=== PATIENT | male | born 1945 | race Caucasian/White ===

== ENCOUNTER 2023-06-26 13:28 | Outpatient (CLI) | payer MEDICARE, SELFPAY ==
--- NOTE | ~2023-06-26 | CT_ITS ---
EXAMINATION: CT abdomen pelvis wo con DATE: 06/26/2023 13:42 INDICATION: Benign prostatic hypertrophy. Urinary obstruction. TECHNIQUE: Computed tomography (CT) of the abdomen and pelvis was performed without intravenous contr ast. Automated exposure control and iterative reconstruction technique were employed. The dose-length product was 1092.62 mGy-cm. COMPARISON: None. FINDINGS: The visualized portions of the lung bases demonstrate mild atelectasis. There is mild bronc hiectasis bilaterally. No pleural effusion. The heart size is normal. There are coronary artery calci fications. No pericardial effusion. The liver, spleen, gallbladder, and adrenal glands are normal. Ca lcifications in the pancreas are consistent with chronic pancreatitis. The kidneys are normal. The pr ostate is moderately enlarged. There are bilateral inguinal hernias containing fat. There is divertic ulosis of the colon without evidence of diverticulitis. There are no dilated loops of bowel. The appe ndix is normal. There are no pathologically enlarged lymph nodes. There is no free intraperitoneal fl uid. There is moderate thoracic spondylosis and severe lumbar spondylosis. There is mild chronic heig ht loss of multiple vertebral bodies. IMPRESSION: 1. Moderately enlarged prostate. 2. Bilateral inguinal hernias containing fat. Reviewed, dictated and finalized at location E.
== END 2023-06-26 13:29 ==
LOC: MICIMG 13:29
PROVIDERS: PCP Urology; Visit Provider Urology
DX: N40.1 Benign prostatic hyperplasia with lower urinary tract symptoms (principal); K40.20 Bilateral inguinal hernia, without obstruction or gangrene, not specified as recurrent
CPT/HCPCS: 74176

== ENCOUNTER 2025-01-24 12:57 | Outpatient (CLI) | payer MEDICARE, SELFPAY ==
--- NOTE | ~2025-01-24 | MMUS_ITS ---
EXAMINATION: MM diagnostic carter BI w fredy, US breast LT limited INDICATION: 79-year old MALE; presents for evaluation of palpable lump in the left breast, ongoing for 4 months. COMPARISON: None TECHNIQUE: Digital breast tomosynthesis CC and MLO views of the BILATERAL breast were obtained with computer-aided detection to assist in interpretation of the study. Radiopaque skin marker was placed over the palpable area in the left breast. FINDINGS: There are scattered areas of fibroglandular density.There is moderate volume of fibroglandular tissue in LEFT breast compatible with gynecomastia. This finding correlates to the radiopaque skin marker. The right breast is entirely fatty. LEFT BREAST ULTRASOUND FINDINGS: Targeted evaluation of the area of palpable lump was completed. Normal appearing fibroglandular tissue is identified in subareolar location. There are no suspicious cystic or solid mass seen in either breast. A 0.2 cm superficial cysts is identified at 3:00, 3 cm from the nipple. IMPRESSION: FINDINGS COMPATIBLE WITH GYNECOMASTIA CORRELATES TO THE AREA OF PALPABLE LUMP IN THE LEFT BREAST . FURTHER EVALUATION OF PATIENT'S PALPABLE LUMP SHOULD BE BASED ON CLINICAL IMPRESSION. FOLLOW-UP CLINICALLY WARRANTED. RECOMMENDATION: CLINICAL MANAGEMENT OF PALPABLE LUMP BI-RADS 2, BENIGN Reviewed, dictated and finalized at location B. COUNSELOR IMPRESSION: FINDINGS COMPATIBLE WITH GYNECOMASTIA CORRELATES TO THE AREA OF PALPABLE LUMP I N THE LEFT BREAST . FURTHER EVALUATION OF PATIENT'S PALPABLE LUMP SHOULD BE BAS ED ON CLINICAL IMPRESSION. FOLLOW-UP CLINICALLY WARRANTED. RECOMMENDATION: CLINICAL MANAGEMENT OF PALPABLE LUMP BI-RADS 2, BENIGN
--- OUTSIDE RECORDS SUMMARY | 2025-01-24 13:05 | XMS_ITS | Clinical Summary ---
Author Organization [facility] [employer] Address [address] [place] [address] Care Team Providers Care Vocational [employer] Instructor Name Role Phone Jairo Natarajan MD Primary Care Provider [phone] Source Comments [facility] [employer],non-owned Affiliates and Associated Physician Practices is amultiple site organization consisting of ambulatory clinics and hospital sitesin [place], [place], [place] and [place]. This disclosure is being madepursuant to the Care Everywhere program and may not contain all information available regarding this patient. Last updated 17.[facility] [employer] Allergies Active Allergy Reactions Criticality Noted Date Comments Atorvastatin 03/09/2017 Penicillins 03/09/2017 Sulphamethoxydiazine 03/09/2017 Medications * Be aware that medications may not be up to date on this document. Alwaysverify current medications with the patient. simvastatin (ZOCOR) 40 MG tablet Take 40 mg by mouth at bedtime Active TAMSULOSIN HCL PO Active Montelukast Sodium (SINGULAIR PO) Activ e FENOFIBRATE PO Activ e Eluxadoline (VIBERZI PO) Active SERTRALINE HCL PO Active DICYCLOMINE HCL PO Active OMEPRAZOLE PO Active Nutritional Supplements (DHEA PO) Active ALPHA-LIPOIC ACID PO Active DL-Phenylalanine POWD Active CHROMIUM PICOLINATE PO Active ACETYLCYSTEINE PO Active MILK THISTLE PO Acti ve [place], Zingiber officinalis, (GILES PO) Active [place]-Glucos amine-Vit D (GLUCOSAMINE COMPLEX PO) Active CALCIUM-MAGNESIU M-ZINC PO Active Garlic 1000 MG Activ e [place], Serenoa repens, ([place] PO) Active POTASSIUM PO Active [place]-3 Fatty Acids (FISH OIL PO) Active VITAMIN E PO Active FLAXSEED, LINSEED, PO Active SELENIUM PO Active Cholecalciferol (VITAMIN D PO) Activ e Green Tea, Camillia sinensis, (GREEN TEA PO) Active FOLIC ACID PO Active LYCOPENE PO Active Vitamins A & D (VITAMIN A & D PO) Active Pyridoxine HCl (VITAMIN B6 PO) Acti ve S-Adenosylmethio nine (FLAVIO-E PO) Acti ve 5-Hydroxytryptop valdez (5-HTP PO) Activ e albuterol HFA (PROVENTIL;ONUR RAFAEL;PROAIR) 108 (90 BASE) MCG/ACT inhalerIndicatio ns:Acute bronchitis, unspecified organism Inhale 2 puffs by mouth every 4 hours as needed for Shortness of Breath, Wheezing or Cough 1 Inhaler 8 Active benzonatate (TESSALON) 200 MG capsuleIndicatio ns:Cough Take 1 capsule by mouth 3 times daily as needed for Cough Reasons: Cough 30 capsule 8 Active Social History Tobacco Use Types Packs/Day Years Used Date Smoking Tobacco: Never Smokeless Tobacco: Never Sex and Gender Information Value Date Recorded Sex Assigned at Not on file Legal Sex Male 3:25 PM CDT Gender Identity Not on file Sexual Orientation Not on file Last Filed Vital Signs Vital Sign Reading Time Taken Comments Blood Pressure 138/72 03/09/2017 11:04 AM [employer] Pulse 90 03/09/2017 11:04 AM [employer] Temperature 36.8 C (98.3 F) 03/09/2017 11:04 AM [employer] Respiratory Rate 16 03/09/2017 11:04 AM [employer] Oxygen Saturation 96% 03/09/2017 11:04 AM [employer] Inhaled Oxygen Concentration - - Weight 120.2 kg (265 lb) 03/09/2017 11:04 AM [employer] Height 167.6 cm (5' 6) 03/09/2017 11:04 AM [employer] Body Mass Index 42.77 03/09/2017 11:04 AM [employer] Plan of Treatment Health Maintenance Due Date Last Done Comments HEPATITIS C SCREENING 10/08/1965 DTAP/TDAP/TD VACCINES (1 - Tdap) 10/12/1966 PNEUMOCOCCAL VACCINE 50+ (1 of 1 - PCV) 10/12/1997 ZOSTER VACCINE (1 of 2) 10/12/1997 SCREENING FOR DIABETES 03/09/2017 Respiratory Syncytial Virus (RSV) Vaccine Pt: or over 60 yrs (1 - 1-dose 75+ series) 10/12/2022 DEPRESSION SCREENING 03/06/2024 COVID-19 VACCINE (1 - 2024-2 6 season) 2024 INFLUENZA VACCINE (#1) 2024 HEPATITIS B VACCINE Aged Out No longe r eligible based on patient's age to complete this topic HIB VACCINE Aged Out No longer eligi ble based on patient's age to complete this topic HPV VACCINE Aged Out No longer eligi ble based on patient's age to complete this topic MENINGOCOCCAL (Group B) VACC INE SHARED DECISION-MAKING Aged Out No longer eligibl e based on patient's age to complete this topic MENINGOCOCCAL GROUPS A/C/Y/W VACCINE Aged Out No longer eligible b ased on patient's age to complete this topic Insurance [facility] MANAGED MEDICARE ADV Care Teams 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
== END 2025-01-24 12:58 | disposition home or self-care (01) ==
PROVIDERS: PCP Internal Medicine; Visit Provider Internal Medicine
DX: N63.42 Unspecified lump in left breast, subareolar (principal); N60.12 Diffuse cystic mastopathy of left breast
CPT/HCPCS: 36415; 76642; 77062; 77066; 80053; 80061; 82043; 83036; G0279

== ENCOUNTER 2025-01-24 15:02 | Outpatient (CLI) | payer MEDICARE, SELFPAY ==
--- OUTSIDE RECORDS SUMMARY | 2025-01-24 15:06 | XMS_ITS | Continuity of Care Document ---
Author Organization [facility] [employer] [facility] General Surgery Address [address] [place] [address] Care Team Providers Care Account Manager Employee Benefits Name Role Phone KALEY NATARAJAN Primary Care Provider [phone] Assessment No assessment recorded. Plan of Treatment Reminders Order Date Submit Date Provider Last Modified By Organization Details Last Modified Time Details Appointments [facility] Patient 15 2025 03:45P M Seth Neal DPM Not available Not available Not available [facility] Patient 15 2025 02:15P M Vielka De Los Santos MD Not available Not available Not available Lab None recorded . Referral None recorded . Procedures None recorded . Surgeries None recorded . Imaging None recorded . Medication Orders famotidi ne 40 mg tablet 2024 025 [facility] [address] [place], [address], 11/20/2024 15:53:56 pantopra zole 40 mg tablet,d elayed release 2024 025 [facility] [address] [place], [address], 11/20/2024 15:53:57 Patient TargetsNo targets recorded. Patient Instructions Encounter Date Encounter Id Patient Instructions Last Modified By Organization Details Last Modified Time 11/20/2024 [id number] REFLUX DIET [id number] Not available 0 11/20/2024 15:52:45 PT WITH GERD , DOING WELL WITH PANTOPRAZOLE 40 MG / FAMOTIDINE 40 MG . CONT SAME. F/U IN 6 MTHS . [email or web address] Not available 11/20/2024 15:53:28 Reason for Referral None Reported. Problems Name Problem SNOMED Code Status Onset Date Resolution Date Notes Provider Name and Address Organization Details Recorded Time Insomnia 277928349 Active Not Available [facility] 3 13:53:19 Osteoarthr itis 938487385 Active Not Available [facility] 3 13:53:20 Dysphagia 40433344 Active Not Available [facility] 3 13:53:20 Periodic limb movement disorder 740764112 Active Not Available [facility] 3 13:53:20 Allergic rhinitis 67075276 Active Not Available [facility] 3 13:53:21 Fatigue 89913654 Active Not Available [facility] 3 13:53:21 Vitamin deficiency 21277387 Active Not Available [facility] 3 13:53:21 Hyperchole sterolemia 72065561 Active 2017 Not Available [facility] 3 13:53:19 Prostate specific antigen outside reference range 320699598 Active 2017 Not Available [facility] 3 13:53:19 Irritable bowel syndrome with diarrhea 375263889 Active 2017 Not Available [facility] 3 13:53:19 Osteoarthr itis of knee 489260891 Active 2017 Not Available [facility] 3 13:53:19 Depressive disorder 35507397 Active 2017 Not Available [facility] 3 13:53:20 Obstructiv e sleep apnea syndrome 72385535 Active 2017 Not Available [facility] 3 13:53:21 Body mass index 40+ - severely obese 793590693 Active 2018 Not Available [facility] 3 13:53:20 Gastroesop hageal reflux disease 649390015 Active 2019 Not Available [facility] 3 13:53:19 Irregular heart beat 187129697 Active 2020 Not Available [facility] 3 13:53:20 Porokerato sis 216479286 Active 2020 Not Available [facility] 3 13:53:20 Tinea cruris 015304754 Active 2021 Not Available [facility] 3 13:53:20 Obesity 048148673 Active 2021 Not Available [facility] 3 13:53:20 Benign prostatic hyperplasi a 634975414 Active 2021 Not Available [facility] 3 13:53:20 Gastroesop hageal reflux disease without esophagiti s 008010014 Active 2021 Not Available [facility] 3 13:53:19 Morbid obesity 279009248 Active 2021 Not Available [facility] 3 13:53:19 Obese class III 633959555 Active 2022 Kaley Natarajan MD [address], [place], [address] , [employer] [facility] 3 15:47:45 Onychomyco sis of toenails 769621923 Active 2022 Seth Neal DPM [address], [address], [place], [address] , [facility] [facility] 3 16:03:20 Dystrophia unguium 77367399 Active 2022 Seth Neal DPM [address], [address], [place], [address] , [employer] [facility] 5 17:16:54 Tinea corporis 10829082 Active 2022 Kaley Natarajan MD [address], [address], [place], [address] , [employer] [facility] 3 16:02:16 Acute sinusitis 15065310 Active 2023 Kaley Natarajan MD [address], [address], [place], [address] , [facility] 4 16:03:22 Neuropathy 918443620 Active 2023 Kaley Natarajan MD [address], [address], [place], [address] , [place] [facility] 4 16:52:34 Diabetes mellitus 40089060 Active 2023 Seth Neal DPM [address], [address], [place], [address] , [place] [facility] 5 09:01:03 Unable to cut own toenails 058151188 Active 2023 Seth Neal DPM [address], [place], [address] , [place] [facility] 4 17:32:11 Disorder of prostate 10956044 Active 2023 Kaley Natarajan MD [address], [place], [address] , [place] [facility] 4 17:08:48 Diabetic on oral treatment 859828576 Active 2024 Seth Neal DPM [address], [place], [address] , [place] [facility] 5 17:23:32 Type 2 diabetes mellitus 41348097 Active 2024 Kaley Natarajan MD [address], [place], [address] , [place] [facility] 5 17:20:07 Lump in upper outer quadrant of left breast 5774391457804 03 Active 2024 Kaley Natarajan MD [address], [place], [address] , [place] [facility] 5 17:23:38 Lump of subareolar area of left breast 6716483447292 9107 Active 2024 Roxana keenan, [place] [facility] 5 14:54:19 Notes:Some problems listed i n Document: #[id number] could not be added to this patient's chart. Please review this document and add these problems to the patient's chart manually as needed. Problem Notes None recorded. Procedures Surgical History Date Name Laterality Status Provider Name and Address Organization Details Recorded Time 11/22/19 25 Nail Debridement completed Seth Neal DPM [address], [address], [place], [address], [employer] 11/25/2024 09:02:18 08/23/19 25 Nail Debridement completed NATHAN Ceron, [address], [place], [address], [employer] 08/22/2024 17:16:44 05/22/19 25 Nail Debridement completed NATHAN Ceron, [address], [place], [address], [employer] 05/23/2024 09:47:05 02/20/20 24 Nail Debridement completed NATHAN Ceron, [address], [place], [address], [employer] 02/21/2024 13:59:43 11/21/19 24 Nail Debridement completed NATHAN Ceron, [address], [place], [address], [employer] 11/21/2023 17:30:19 09/20/19 24 Medicare Wellness CPT Code, subsequent completed Mirian Demarco RN [employer] [facility] [employer] 09/20/2023 16:44:50 08/15/19 24 Nail Debridement completed NATHAN Ceron, [address], [place], [address], [employer] 08/15/2023 17:48:45 02/15/20 23 Nail Debridement completed NATHAN Ceron, [address], [place], [address], [employer] [address] [facility] [employer] 02/15/2023 11:14:26 02/03/20 23 Blank Procedure Note completed NATHAN Ceron, [address], [place], [address], [employer] 02/02/2023 16:19:41 10/26/19 23 Nail Debridement completed Seth Neal DPM [address], [place], [address], [facility] 10/25/2022 16:05:06 10/14/19 23 Cystoscopy (male) completed Flaco Ramesh MD [address], [address], [place], [address], [facility] 2022 12:55:36 05/12/19 Medicare Wellness CPT Code, subsequent completed Mirian Demarco RN [facility] [employer] [facility] 05/11/2022 16:24:07 EGD completed Not Available [facility] 03/2022 13:52:33 colonoscopy completed Not Available [facility] 05/04/2022 13:52:33 tonsillectomy completed Not Available [facility] 05/04/2022 13:52:33 biopsy of prostate completed Not Available [facility] 05/04/2022 13:52:33 manipulation of displaced nasal septum completed Not Available [facility] 05/04/2022 13:52:33 Adenoid Surgery completed Not Available [facility] 05/04/2022 13:52:33 Colonoscopy completed Not Available [facility] 05/04/2022 13:52:33 Endoscopy completed Not Available [place] [address] 05/04/2022 13:52:33 Imaging Results None recorded. Procedure Notes None recorded. Medical Equipment None Reported. Allergies Allergen ID Allergen Name Allergen Category Reaction Reaction Severity Criticality Documentation Date Start Date Code Code System Note Provider Name and Address Organization Details Recorded Time 97696 Substance with sulfonami de structure and antibacte rial mechanism of action (substanc e) medicatio n rash Not available Not available 05/04/2022 12636 8003 SNOMED Not Available [facility] 13:54:59 98261 simvastat in medicatio n Not available Not available Not available 05/04/2022 96129 RxNorm Not Available [facility] 13:54:59 31041 Product containin g penicilli n (product) medicatio n rash Not available Not available 05/04/2022 42415 8001 SNOMED Not Available [facility] 3 13:54:59 58313 phenazopy ridine hydrochlo ride medicatio n Not available Not available Not available 05/04/202242648 7 RxNorm with pumpk in Not Available [facility] 3 13:54:59 57321 atorvasta tin medicatio n rash Not available Not available 05/04/2022 25680 RxNorm Not Available [facility] 3 13:54:59 42834 ciproflox acin medicatio n Not available Not available Not available 10/14/2022 2551 RxNorm TY Weir, [place] [facility] 3 11:13:30 97673 atorvasta tin calcium medicatio n Not available Not available Not available 01/24/20252017 18119 RxNorm Not Available [employer] - prod 5 15:16:11 Medications Name Sig Start Date Stop Date Status Note LastModified by Organization Details LastModified Time status covid-19/fl u a-b antigen tst TEST DIRECTED TODAY 01/28 completed Not Available Not Available Not Available pioglitazon e 15 mg tablet one tablet daily 03/28 completed Not Available Not Available Not Available fluconazole 100 mg tablet 09/15 completed Not Available Not Available Not Available atorvastati n 40 mg tablet 11/23 completed Not Available Not Available Not Available metformin 500 mg tablet QID 11/22 completed Not Available Not Available Not Available oxybutynin chloride ER 15 mg tablet,exte nded release 24 hr Take 1 tablet every day by oral route. 2019 active Not Available Not Available Not Avai lable clindamycin HCl 300 mg capsule 09/26 completed Not Available Not Available Not Available ammonium lactate 12 % lotion APPLY LOTION TOPICALLY TO AFFECTED AREA TWICE DAILY NEEDED 05/19 completed Not Available Not Available Not Available trazodone 50 mg tablet TAKE 1 TABLET BY MOUTH ONCE DAILY 05/20 completed Not Available Not Available Not Available oxybutynin chloride ER 10 mg tablet,exte nded release 24 hr TAKE 1 TABLET BY MOUTH ONCE DAILY 06/12 completed Not Available Not Available Not Available azithromyci n 250 mg tablet TAKE 2 TABLETS BY MOUTH ON DAY 1, AND THEN TAKE 1 TABLET BY MOUTH ONCE A DAY ON DAY 2 THROUGH DAY 5 05/15 completed Not Available Not Available Not Available pravastatin 40 mg tablet Take 1 tablet every day by oral route. 07/23 completed Not Available Not Available Not Available phenazopyri dine 200 mg tablet TAKE 1 TABLET BY MOUTH THREE TIMES DAILY NEEDED FOR BURNING 05/20 completed Not Available Not Available Not Available famotidine 40 mg tablet TAKE 1 TABLET BY MOUTH AT BEDTIME active Not Available Not Available No t Available prednisone 20 mg tablet 03/30 completed Not Available Not Available Not Available Prilosec 40 mg capsule,del ayed release Take 1 capsule every day by oral route in the morning. 05/19 completed Not Available Not Available Not Available sertraline 100 mg tablet TAKE 1 TABLET BY MOUTH DAILY 2024 active Not Available Not Available Not Avai lable pioglitazon e 45 mg tablet TAKE 1 TABLET BY MOUTH DAILY 2024 active Not Available Not Available Not Avai lable simvastatin 80 mg tablet Take by oral route. 11/23 completed Not Available Not Available Not Available ciprofloxac in 500 mg tablet TAKE 1 TABLET BY MOUTH TWICE DAILY 09/19 completed Not Available Not Available Not Available glimepiride 2 mg tablet Take 1 tablet twice a day by oral route. 05/13 completed Not Available Not Available Not Available meloxicam 7.5 mg tablet TAKE 1 TABLET BY MOUTH DAILY 2024 active Not Available Not Available Not Avai lable famotidine 20 mg tablet TAKE 1 TABLET BY MOUTH AT BEDTIME 05/20 completed Not Available Not Available Not Available pravastatin 80 mg tablet TAKE 1 TABLET BY MOUTH ONCE DAILY 2024 active Not Available Not Available Not Avai lable gentamicin 0.3 % eye drops active Not Available Not Available Not Available tamsulosin 0.4 mg capsule Take 1 capsule every day by oral route. active Not Available Not Available No t Available trazodone 100 mg tablet TAKE 1 TABLET BY MOUTH ONCE DAILY AT BEDTIME 05/20 completed Not Available Not Available Not Available OneTouch Ultra Test strips active Not Available Not Available Not Available doxycycline monohydrate 100 mg capsule TAKE 1 CAPSULE BY MOUTH TWICE DAILY 09/23 completed Not Available Not Available Not Available cephalexin 500 mg capsule active Not Available Not Available Not Available pantoprazol e 40 mg tablet,ella yed release TAKE 1 TABLET BY MOUTH ONCE DAILY AT BEDTIME active Not Available Not Available No t Available metformin 1,000 mg tablet TAKE 1 TABLET BY MOUTH TWICE DAILY 2024 active Not Available Not Available Not Avai lable esomeprazol e magnesium 40 mg capsule,del ayed release TAKE 1 CAPSULE BY MOUTH ONCE DAILY BEFORE A MEAL 2023 active Not Available Not Available Not Avai lable triamcinolo ne acetonide 0.1 % topical ointment 03/30 completed Not Available Not Available Not Available nystatin 100,000 unit/gram topical cream 08/22 completed Not Available Not Available Not Available clotrimazol e-betametha sone 1 %-0.05 % topical cream APPLY CREAM TOPICALLY TO AFFECTED AREA TWICE DAILY IN THE MORNING AND EVENING FOR 2 WEEKS active Not Available Not Available No t Available glimepiride 4 mg tablet TAKE 1 TABLET BY MOUTH TWICE DAILY 2024 active Not Available Not Available Not Avai lable nystatin-tr iamcinolone 100,000 unit/g-0.1 % topical cream APPLY CREAM TO AFFECTED AREA TWICE DAILY NEEDED active Not Available Not Available No t Available montelukast 10 mg tablet TAKE 1 TABLET BY MOUTH ONCE DAILY 2024 active Not Available Not Available Not Avai lable hydroxyzine HCl 25 mg tablet TAKE 1 TABLET BY MOUTH THREE TIMES DAILY active Not Available Not Available No t Available mupirocin 2 % topical ointment 05/19 completed Not Available Not Available Not Available mirtazapine 15 mg tablet TAKE 1 TABLET BY MOUTH DAILY 2024 active Not Available Not Available Not Avai lable ergocalcife rol (vitamin D2) 1,250 mcg (50,000 unit) capsule Take 1 capsule every week by oral route. 11/23 completed Not Available Not Available Not Available nystatin 100,000 unit/gram topical powder APPLY POWDER TOPICALLY TO AFFECTED AREA TWICE DAILY active Not Available Not Available No t Available ibuprofen 600 mg tablet TAKE 1 TABLET BY MOUTH THREE TIMES DAILY WITH FOOD active Not Available Not Available No t Available levofloxaci n 750 mg tablet 09/15 completed Not Available Not Available Not Available methylpredn isolone 4 mg tablets in a dose pack TAKE BY MOUTH DIRECTED ON INSIDE OF PACKAGE 01/28 completed Not Available Not Available Not Available ketoconazol e 2 % topical cream APPLY TO THE AFFECTED AREAS GREAT TOENAILS BY TOPICAL ROUTE ONCE DAILY active Not Available Not Available No t Available Zocor 40 mg tablet Take 1 tablet every day by oral route. 01/12 completed Not Available Not Available Not Available sertraline 50 mg tablet Take 1 tablet every day by oral route. active Not Available Not Available No t Available dicyclomine 10 mg capsule 03/30 completed Not Available Not Available Not Available naproxen 500 mg tablet TAKE 1 TABLET BY MOUTH TWICE DAILY active Not Available Not Available No t Available Actos 30 mg tablet Take 1 tablet every day by oral route. 12/05 completed Not Available Not Available Not Available ezetimibe 10 mg tablet TAKE 1 TABLET BY MOUTH DAILY 2024 active Not Available Not Available Not Avai lable Multivitami n 50 Plus tablet Take 1 tablet every day by oral route. 2021 active Not Available Not Available Not Avai lable nitrofurant oin monohydrate /macrocryst als 100 mg capsule TAKE 1 CAPSULE BY MOUTH TWICE DAILY 01/28 completed Not Available Not Available Not Available solifenacin 10 mg tablet TAKE 1 TABLET BY MOUTH AT BEDTIME active Not Available Not Available No t Available fenofibrate 160 mg tablet TAKE 1 TABLET BY MOUTH DAILY 2024 active Not Available Not Available Not Avai lable Colace one tablet daily 05/19 completed Not Available Not Available Not Available naproxen 05/19 completed Not Available Not Available Not Available simvastatin 05/19 completed Not Available Not Available Not Available ProAir HFA 90 mcg/actuati on aerosol inhaler 03/30 completed Not Available Not Available Not Available OneTouch UltraMini kit active Not Available Not Available Not Available lidocaine 2 % mucosal jelly in applicator Take 1 applicati on by mucous route. 05/15 completed Not Available Not Available Not Available alpha lipoic acid 200 mg capsule Take 3 capsules every day by oral route. 06/24 completed Not Available Not Available Not Available Tenivac (PF) 5 Lf unit-2 Lf unit/0.5 mL intramuscul ar syringe 05/13 completed Not Available Not Available Not Available Myrbetriq 50 mg tablet,exte nded release qd 05/13 completed Not Available Not Available Not Available OneTouch Delica Lancets 30 gauge 06/24 completed Not Available Not Available Not Available Invokana 300 mg tablet Take 1 tablet every day by oral route. 2021 active Not Available Not Available Not Avai lable Viberzi 100 mg tablet Take 1 tablet twice a day by oral route as needed. 12/05 completed Not Available Not Available Not Available OneTouch Ultra Blue Test Strip USE 1 STRIP TO CHECK GLUCOSE TWICE DAILY active Not Available Not Available No t Available Fluzone High-Dose 5319-6662 (PF) 180 mcg/0.5 mL intramuscul ar syringe 03/28 completed Not Available Not Available Not Available OneTouch Delica Plus Lancet 33 gauge USE 1 TO CHECK GLUCOSE ONCE DAILY active Not Available Not Available No t Available Fluzone High-Dose (PF) 180 mcg/0.5 mL intramuscul ar syringe PHARMACIS T ADMINISTE RED IMMUNIZAT ION ADMINISTE RED AT TIME OF DISPENSIN G active Not Available Not Available No t Available Fluzone High-Dose Quad (PF) 240 mcg/0.7 mL IM syringe PHARMACIS T ADMINISTE RED IMMUNIZAT ION ADMINISTE RED AT TIME OF DISPENSIN G active Not Available Not Available No t Available Sutab 1.479-0.188 -0.225 gram tablet DIRECTED active Not Available Not Available No t Available Vitals Date Recorded Body height Body mass index (BMI) Body weight Heart rate Oxygen saturation Systolic And Diastolic Provider Name and Address Organization Details Last Updated DateTime 5 167.64 cm 41.3 kg/m2 044995. 65 g 90 /min 95 % 126/76 mm[Hg] BASIA Giron [facility] 5 15:19:12 Social History Question Answer Notes LastModified by Organizat ion Details LastModified Time Tobacco Smoking Status Never Smoker Not Available [facility] 05/04/2022 13:52:20 Do You Have An Advance Directive? No [id number] Information not available 05/04/2022 Are You Blind Or Do You Have Difficulty Seeing? Yes [id number] [id number] Information not available 05/04/2022 What Is Your Level Of Caffeine Consumption? Moderate 1 Cup Coffee Daily [id number].[id number] Information not available 05/04/2022 How Much Tobacco Do You Chew? None MIGRATION.46747 52907 Information not available 05/04/2022 In The 14 Days Before Symptom Onset, Have You Had Close Contact With A Laboratory-confi rmed COVID-19 While That Case Was Ill? No [id number].17511 [id number] Information not available 05/04/2022 In The 14 Days Before Symptom Onset, Have You Had Close Contact With A Person Who Is Under Investigation For COVID-19 While That Person Was Ill? No MIGRATION.49951 11488 Information not available 05/04/2022 Are You Deaf Or Do You Have Serious Difficulty Hearing? No MIGRATION.76368 60274 Information not available 05/04/2022 What Type Of Diet Are You Following? SPECIFIC Reflux Diet MIGRATION.55683 46799 Information not available 05/04/2022 Which Illicit Or Recreational Drugs Have You Used? None MIGRATION.95859 36610 Information not available 05/04/2022 Have There Been Any Changes To Your Family Or Social Situation? No MIGRATION.10006 67442 Information not available 05/04/2022 What Is The Fluoride Status Of Your Home? Unknown [email or web address] Information not available 05/11/2022 Are There Any Guns Present In Your Home? No MIGRATION.58276 [id number] Information not available 05/04/2022 Do You Use Insect Repellent Routinely? No MIGRATION.62863 94135 Information not available 05/04/2022 Where Do You Live? [place]House MIGRATION.79045 00117 Information not available 05/04/2022 Guns Present In The Home? No [email or web address] Information not available 09/20/2023 Are You Able To Care For Yourself? Yes [email or web address] Information not available 09/20/2023 Are You Blind Or Do Yo Have Difficulty Seeing? No [email or web address] Information not available 09/20/2023 Are You Deaf Or Do You Have Serious Difficulty Hearing? No [email or web address] Information not available 09/20/2023 Live Alone Of With Others? Alone [email or web address] Information not available 09/20/2023 Do You Have A Medical Power Of Professor Of Vegetable Science? No MIGRATION.36359 [id number] Information not available 05/04/2022 What Was The Date Of Your Most Recent Tobacco Screening? 09/20/2023 [email or web address] Information not available 09/20/2023 Do You Have Any Pets? No MIGRATION.94635 86004 Information not available 05/04/2022 Do You Use Your Seat Belt Or Car Seat Routinely? Yes MIGRATION.18480 58701 Information not available 05/04/2022 Do You Have Smoke And Carbon Monoxide Detectors In Your Home? Yes MIGRATION.66319 26199 Information not available 05/04/2022 Are You Passively Exposed To Smoke? No MIGRATION.11151 02378 Information not available 05/04/2022 Are There Any Smokers In Your House? No MIGRATION.24755 68903 Information not available 05/04/2022 How Much Tobacco Do You Smoke? No MIGRATION.64046 50210 Information not available 05/04/2022 Do You Use Sunscreen Routinely? No MIGRATION.80300 47414 Information not available 05/04/2022 Has Tobacco Cessation Counseling Been Provided? No MIGRATION.40297 43358 Information not available 05/04/2022 Have You Recently Traveled Abroad? No MIGRATION.26064 90811 Information not available 05/04/2022 Do You Have Difficulty Walking Or Climbing Stairs? Yes Uses A Cane [email or web address] Information not available 05/11/2022 Do You Have Any Dietary Restrictions? No MIGRATION.18668 88801 Information not available 05/04/2022 Sex: Unknown Functional Status Question Answer Note LastModified by Organizat ion Details LastModified Time Do you use any illicit or recreational drugs? No MIGRATION.[id number] 0047 Information not available 05/04/2022 Do you or have you ever used any other forms of tobacco or nicotine? No MIGRATION.895700 7514 Information not available 05/04/2022 What is your level of alcohol consumption? None MIGRATION.900408 1024 Information not available 05/04/2022 Do you or have you ever used smokeless tobacco? Never used smokeless tobacco MIGRATION.[id number] 3476 Information not available 05/04/2022 Do you have transportation difficulties? No [id number] Information not available 05/04/2022 Are you able to walk independently without assistance or assistive devices? YESASSIST [id number] Information not available 05/04/2022 Do you have difficulty doing errands alone? No [id number] Information not available 05/04/2022 Are you able to care for yourself independently? Yes MIGRATION.[id number] Information not available 05/04/2022 What is your occupation? retired MIGRATION.[id number] Information not available 05/04/2022 Do you have difficulty dressing, bathing, grooming, or toileting? No MIGRATION.[id number] 2405 Information not available 05/04/2022 Do you or have you ever used e-cigarettes or vape? Never used electronic cigarettes MIGRATION.[id number] Information not available 05/04/2022 What is your exercise level? None MIGRATION.[id number] 0895 Information not available 05/04/2022 Mental Status Question Answer Note LastModified by Organizat ion Details LastModified Time Do you have difficulty concentrating, remembering or making decisions? No [id number] Information not available 05/04/2022 Family History Relationship Description Onset Age of this Age Resolved Age Notes LastModified by Organization Details LastModified Time Mother Internal capsule hemorrhage 85 [id number] Not available 05/04/2022 13:52:34 Mother Family history of stroke 85 MIGRATION.619 [id number] Not available 05/04/2022 13:52:34 Mother Carcinoma in situ of breast MIGRATION.083 [id number] Not available 05/04/2022 13:52:34 Father Myocardial infarction 83 MIGRATION.815 [id number] Not available 05/04/2022 13:52:34 Father Diabetes mellitus MIGRATION.655 [id number] Not available 05/04/2022 13:52:34 Father Arthritis MIGRATION.019 [id number] Not available 05/04/2022 13:52:34 Notes:Mother 85 from in ternal hemorrhage from Coumadin Father 83 from [place] One older sister living and in good health Medical History Condition Response NERVE DISEASE N BLINDNESS N RHEUMATIC FEVER N KIDNEY STONES N BLADDER PROBLEMS N OTHER # 1 N POLIO N LUNG DISEASE/DISORDER N RADIATION / CHEMOTHERAPY N COPD N Other # 2 N BLOOD DISEASES N SURGERY N EAR OR HEARING PROBLEMS N MUMPS N DEPRESSION (INCLUDING POST ) Y BOWEL PROBLEMS Y STROKE/TIA N ULCERS N BENIGN PROSTATIC HYPERPLASIA N MEASLES N MYOCARDIAL INFARCTION N OBESITY Y GERD/NAUSEA Y ANEURYSM N URINARY/BLADDER/KIDNEY PROBLEMS Y INPATIENT PSYCH CARE N CORONARY ARTERY DISEASE (CAD) N ADDICTION CONCERNS N Impotence N ENDOMETRIOSIS N USE OF BLOOD THINNERS N SKIN PROBLEMS N GASTROINTESTINAL DISORDER N PERIPHERAL VASCULAR DISEASE N MUSCLE,JOINT OR BONE PROBLEMS N GASTROINTESTINAL BLEEDING N BLOOD CLOTS N ASTHMA N CATARACTS N ERECTILE DYSFUNCTION N VARICOSITIES N GI PROBLEMS N Low Testosterone N INFERTILITY N AIDS/HIV N LIVER DISEASE N MALE HYPOGONADISM N HYPERTENSION N Deficiency N ANXIETY DISORDER N BLOOD TRANSFUSION N ANEMIA/BLOOD DISORDER N CHRONIC EAR INFECTIONS N BRONCHITIS N TUBERCULOSIS N GLAUCOMA N FOOT PROBLEM N DIVERTICULITIS N SLEEP APNEA Y CHICKENPOX N INFECTIOUS DISEASE N PROSTATE N HEART ARRHYTHMIA N INSOMNIA N HIGH CHOLESTEROL / HYPERLIPIDEMIA Y EYE PROBLEMS N HYPERTHYROIDISM N NEUROLOGICAL PROBLEMS N EDEMA N CHRONIC PAIN SYNDROME N HYPOTHYROIDISM N CAROTID BLOCKAGE N CONSTIPATION N BACK / NECK PROBLEMS Y HAVE YOU BEEN HOSPITALIZED OR SEEN IN [facility] IN THE PAST YEAR ? N ATHEROSCLEROSIS N BREAST PROBLEMS N DIALYSIS N ECZEMA N OSTEOPOROSIS N ARTHRITIS Y NO SIGNIFICANT PAST MEDICAL HISTORY N APPENDICITIS N DIABETES, TYPE Y BAD TEETH N ENT N HEARTBURN / REFLUX N AUTISM SPECTRUM DISORDER (ASD) N HEPATITIS / LIVER DISEASE N PULMONARY DISEASE N GOUT N SLEEP DISORDER N ALZHEIMER'S DISEASE N Brain Problems N DEMENTIA N HERPES N SEIZURES/EPILEPSY N HEADACHES/MIGRAINES N VASCULAR DISEASE N PACEMAKER N Blood Disorder N DIZZINESS N HEART DISEASE/HEART PROBLEMS N KIDNEY DISEASE N MULTIPLE SCLEROSIS N CANCER: SPECIFY N CARDIAC ARRHYTHMIA N ANESTHESIA COMPLICATIONS N ATRIAL FIBRILLATION N Gall Stones N PULMONARY EMBOLISM N AUTOIMMUNE DISEASE N Immunizations Vaccine Type Date Status Note Provider Nam e and Address Organization Details Recorded Time SARS-COV-2 (COVID-19) vaccine, UNSPECIFIED 3 completed NIRMALA Martin, [employer] 08/04/2022 14:01:26 influenza, unspecified formulation 3 completed NIRMALA Martin, [employer] [facility] 12/28/2022 12:44:44 Respiratory syncytial virus (RSV) MAB, unspecified 3 completed NIRMALA Martin, [facility] 12/28/2022 12:45:47 COVID-19, mRNA, LNP-S, PF, 100 mcg/0.5mL dose or 50 mcg/0.25mL dose 3 completed Roxanne Kelly ENDOSCOPE TECHNICIAN null, [facility] 12/28/2022 12:46:38 pneumococcal polysaccharide PPV23 4 completed BASIA Marroquin null, [facility] 09/20/2023 17:16:39 Influenza, split virus, quadrivalent, preservative 1 completed Not Available [facility], [facility] 05/04/2022 13:54:56 COVID-19, mRNA, LNP-S, PF, 100 mcg/0.5mL dose or 50 mcg/0.25mL dose 1 completed Not Available [facility], [facility] 05/04/2022 13:54:56 SARS-COV-2 (COVID-19) vaccine, UNSPECIFIED 1 completed Not Available [facility] 05/04/2022 13:54:56 SARS-COV-2 (COVID-19) vaccine, UNSPECIFIED 1 completed Not Available [facility] 05/04/2022 13:54:56 Influenza, high-dose, quadrivalent, PF 2 completed Not Available [facility], [facility] 05/04/2022 13:54:57 Td (adult), 5 Lf tetanus toxoid, preservative free, adsorbed 0 completed Not Available [facility] 05/04/2022 13:54:57 Pneumococcal conjugate PCV 13 0 completed Not Available [facility] 05/04/2022 13:54:57 Past Encounters Encounter ID Performer Location Encounter Start Date Encounter Closed Date Diagnosis/Indication Diagnosis SNOMED-CT Code Diagnosis ICD10 Code Diagnosis IMO Codes Diagnosis Note [id number] Vielka De Los Santos MD [facility] General Surgery [address] [facility], [facility] [address] [place] [address] 11/20/2024 14:58:29 11/20/2024 15:49:33 Gastroesophageal reflux disease without esophagitis 677168983 K21.9 Health Concerns Section Related Observation LastModified by Organization Detai ls LastModified Time None Recorded Concern Status LastModified by Organization Details LastModified Time None Recorded Payers Encounter Date Sequence Insurance Name Policy Number Policy Pryor Covered Member ID Pryor Member ID Guarantor Name 11/20/2024 1 [facility] (MEDICARE REPLACEMENT/A DVANTAGE - HMO) [id number] Livia Kevinkerman [id number] Livia Leslie Justine Notes Date Note Type Note Provider Name and Address Organization Details Recorded Time 11/20/2024 text/html ROS as noted in the HPI LIVIA WAS SEEN IN THE OFFICE TODAY FOR A F/U OF HIS GERD . PT IS DOING WELL WITH PANTOPRAZOLE 40 / FAMOTIDINE 40 MG . NO GERD SX NOW . Vielka De Los Santos MD [address] [place] [address], [place] [address], [place], [address], [facility] [employer] 11/20/2024 15:53:55
--- OUTSIDE RECORDS SUMMARY | 2025-01-24 15:06 | XMS_ITS | Data Portability ---
Author Organization [place] [facility] [employer], Main Office Address [address] [place] [address] Care Team Providers Care Imaging Assistant Name Role Phone KALEY NATARAJAN Primary Care Provider Assessment Encounter Date Assessment Date Assessment LastModified by Organization Details LastModified Time 08/22/2024 08/22/2024 This note is dictated and transcribed by [employer]. Solvent Plant Operator variances may occur. Despite proofreading, typographical errors may occur. Occasional wrong-word or 'ichxy-y-dkmv' substitutions may have occurred due to the inherent limitations of voice recording. Read the chart carefully and recognize, using context, where substitutions have occurred. Not available 08/22/2024 17:16:51 11/21/2024 11/21/2024 This note is dictated and transcribed by [employer]. Sol[employer] Plant Operator variances may occur. Despite proofreading, typographical errors may occur. Occasional wrong-word or 'xtimt-o-jxfk' substitutions may have occurred due to the inherent limitations of voice recording. Read the chart carefully and recognize, using context, where substitutions have occurred. Not available 11/25/2024 09:01:02 Plan of Treatment Reminders Order Date Submit Date Provider Last Modified By Organization Details Last Modified Time Details Appointments Establis hed Patient 15 2025 03:45P M Seth Neal DPM Not available Not available Not available Establis hed Patient 15 2025 02:15P M Vielka De Los Santos MD Not available Not available Not available Lab glycohem oglobin, total, blood 2024 025 [facility] (Lab), [address] [place], [address], 09/30/2024 17:15:44 microalb umin, urine 2024 025 [email or web address] [facility] (Lab), [address] [place], [address], 09/30/2024 17:15:45 lipid panel, serum [email or web address] [place] [address] (Lab), [address] [place], [address], 09/30/2024 17:15:44 CMP, serum or plasma 2024 025 [email or web address] [facility] (Lab), [address] [place], [address], 09/30/2024 17:15:44 Referral None recorded . Procedures None recorded . Surgeries None recorded . Imaging None recorded . Medication Orders famotidi ne 40 mg tablet 2024 025 [facility] [place], [address], 11/20/2024 15:53:56 pantopra zole 40 mg tablet,d elayed release 2024 025 [facility] [address] [place], [address], 11/20/2024 15:53:57 nystatin 100,000 unit/gra m topical powder 2024 025 [facility] [address] [place], [address], 06/26/2024 15:28:54 Patient TargetsNo targets recorded. Patient Instructions Encounter Date Encounter Id Patient Instructions Last Modified By Organization Details Last Modified Time 06/26/2024 [id number] Intertriginous fungal infection lower abdomen. No signs of any Houston's gangrene. Will give a trial of the nystatin topical powder to see if there is any improvement. Keep Appointment: 09 23 2024 03:00 PM [place] Portions of record are template driven. When necessary additional context will be provided. Additionally some portions have been created with voice recognition software. Occasional wrong-word or s ound-a-like substitutions may have occurred due to the inherent limitations of voice recognition software. Read the chart carefully and recognize, using context, where substitutions may have occurred. Created: Kaley Natarajan M.D. 06.26.2024 02:27 PM [email or web address] Not available 06/26/2024 15:28:46 09/23/2024 [id number] Medicare wellnes s evaluation risk assessment stable. Follow-up for hyperlipidemia, type 2 diabetes, GERD, neuropathy, obesity class three and a mass in the left breast etiology which obscure. Recommend a mammogram for further evaluation and management. Advised on FDA Recommended Immunizations including but not limited to Influenza, COVID,Tetanus,TDAP, Pneumococcal,RSV and Shingles Additional Orders - Directives - Recommendations 1. Mammogram left breast for subareolar mass Follow Up: 4 Months Approximate Date: 01/21/2025 Portions of record are template driven. When necessary additional context will be provided. Additionally some portions have been created with voice recognition software. Occasional wrong-word or s ound-a-like substitutions may have occurred due to the inherent limitations of voice recognition software. Read the chart carefully and recognize, using context, where substitutions may have occurred. Created: Kaley Natarajan M.D. 09.23.2024 04:28 PM [email or web address] Not available 09/23/2024 17:28:37 11/20/2024 [id number] REFLUX DIET [email or web address] Not available 0 11/20/2024 15:52:45 PT WITH GERD , DOING WELL WITH PANTOPRAZOLE 40 MG / FAMOTIDINE 40 MG . CONT SAME. F/U IN 6 MTHS . [email or web address] Not available 11/20/2024 15:53:28 Reason for Referral None Reported. Problems Name Problem SNOMED Code Status Onset Date Resolution Date Notes Provider Name and Address Organization Details Recorded Time Insomnia 164521440 Active Not Available [facility] 3 13:53:19 Osteoarthr itis 157739269 Active Not Available [facility] 3 13:53:20 Dysphagia 55778737 Active Not Available [facility] 3 13:53:20 Periodic limb movement disorder 875100462 Active Not Available [facility] 3 13:53:20 Allergic rhinitis 30391817 Active Not Available [facility] 3 13:53:21 Fatigue 31124496 Active Not Available [facility] 3 13:53:21 Vitamin deficiency 28619343 Active Not Available [facility] 3 13:53:21 Hyperchole sterolemia 26474827 Active 2017 Not Available [facility] 3 13:53:19 Prostate specific antigen outside reference range 694208037 Active 2017 Not Available [facility] 3 13:53:19 Irritable bowel syndrome with diarrhea 769653637 Active 2017 Not Available [facility] 3 13:53:19 Osteoarthr itis of knee 018723453 Active 2017 Not Available [facility] 3 13:53:19 Depressive disorder 51850999 Active 2017 Not Available [facility] 3 13:53:20 Obstructiv e sleep apnea syndrome 58904739 Active 2017 Not Available [facility] 3 13:53:21 Body mass index 40+ - severely obese 680330891 Active 2018 Not Available [facility] 3 13:53:20 Gastroesop hageal reflux disease 755756449 Active 2019 Not Available [facility] 3 13:53:19 Irregular heart beat 214289128 Active 2020 Not Available [facility] 3 13:53:20 Porokerato sis 827594636 Active 2020 Not Available [facility] 3 13:53:20 Tinea cruris 713617178 Active 2021 Not Available [facility] 3 13:53:20 Obesity 370023055 Active 2021 Not Available [facility] 3 13:53:20 Benign prostatic hyperplasi a 147923673 Active 2021 Not Available [facility] 3 13:53:20 Gastroesop hageal reflux disease without esophagiti s 277447768 Active 2021 Not Available [facility] 3 13:53:19 Morbid obesity 385512692 Active 2021 Not Available [facility] 3 13:53:19 Obese class III 864343028 Active 2022 Kaley Natarajan MD [address], [address], [place], [address] , [place] [facility] [employer] 3 15:47:45 Onychomyco sis of toenails 266492595 Active 2022 Seth Neal DPM [address], [address], [place], [address] , [employer] [place] [facility] 3 16:03:20 Dystrophia unguium 06871946 Active 2022 Seth Neal DPM [address], [address], [place], [address] , [place] [facility] 5 17:16:54 Tinea corporis 39888659 Active 2022 Kaley Natarajan MD [address], [address], [place], [address] , [place] [facility] 3 16:02:16 Acute sinusitis 18325009 Active 2023 Kaley Natarajan MD [address], [address], [place], [address] , [employer] [place] [facility] 4 16:03:22 Neuropathy 244649023 Active 2023 Kaley Natarajan MD [address], [address], [place], [address] , [place] [facility] 4 16:52:34 Diabetes mellitus 45234376 Active 2023 Seth Neal DPM [address], [address], [place], [address] , [employer] [facility] 5 09:01:03 Unable to cut own toenails 118581454 Active 2023 Seth Neal DPM [address], [address], [place], [address] , [facility] [employer] [facility] 4 17:32:11 Disorder of prostate 03647093 Active 2023 Kaley Natarajan MD [address], [address], [place], [address] , [facility] [employer] [facility] 4 17:08:48 Diabetic on oral treatment 167880267 Active 2024 Seth Neal DPM [address], [place], [address] , [facility] [employer] [facility] 5 17:23:32 Type 2 diabetes mellitus 57443649 Active 2024 Kaley Natarajan MD [address], [address], [place], [address] , [facility] [employer] [facility] 5 17:20:07 Lump in upper outer quadrant of left breast 8318001309519 03 Active 2024 Kaley Natarajan MD [address], [address], [place], [address] , [facility] [employer] [facility] 5 17:23:38 Lump of subareolar area of left breast 5034061291656 9107 Active 2024 [facility] [facility] 5 14:54:19 Notes:Some problems listed i n Document: #[id number] could not be added to this patient's chart. Please review this document and add these problems to the patient's chart manually as needed. Problem Notes None recorded. Procedures Surgical History Date Name Laterality Status Provider Name and Address Organization Details Recorded Time 11/22/19 25 Nail Debridement completed Seth Neal DPM [address], [address], [place], [address], [facility] [employer] [facility] 11/25/2024 09:02:18 08/23/19 25 Nail Debridement completed Seth Neal DPM [address], [place], [address], [facility] 08/22/2024 17:16:44 05/22/19 25 Nail Debridement completed Seth Neal DPM [address], [place], [address], [facility] 05/23/2024 09:47:05 02/20/20 24 Nail Debridement completed Seth Neal DPM [address], [place], [address], [facility] 02/21/2024 13:59:43 11/21/19 24 Nail Debridement completed Seth Neal DPM [address], [place], [address], [facility] 11/21/2023 17:30:19 09/20/19 24 Medicare Wellness CPT Code, subsequent completed Mirian Demarco RN [facility] 09/20/2023 16:44:50 08/15/19 24 Nail Debridement completed Seth Neal DPM [address], [place], [address], [facility] 08/15/2023 17:48:45 02/15/20 23 Nail Debridement completed Seth Neal DPM [address], [place], [address], [facility] [employer] 02/15/2023 11:14:26 02/03/20 23 Blank Procedure Note completed Seth Neal DPM [address], [place], [address], [facility] 02/02/2023 16:19:41 10/26/19 23 Nail Debridement completed Seth Neal DPM [address], [place], [address], [facility] 10/25/2022 16:05:06 10/14/19 23 Cystoscopy (male) completed Flaco Ramesh MD [address], [address], [place], [address], [facility] [employer] [facility] 2022 12:55:36 05/12/19 Medicare Wellness CPT Code, subsequent completed Mirian Demarco RN [facility] [employer] [facility] 05/11/2022 16:24:07 EGD completed Not Available [facility] 03/2022 13:52:33 colonoscopy completed Not Available [facility] 05/04/2022 13:52:33 tonsillectomy completed Not Available [facility] 05/04/2022 13:52:33 biopsy of prostate completed Not Available [facility] 05/04/2022 13:52:33 manipulation of displaced nasal septum completed Not Available [facility] 05/04/2022 13:52:33 Adenoid Surgery completed [facility] 05/04/2022 13:52:33 Colonoscopy completed Not Available [facility] 05/04/2022 13:52:33 Endoscopy completed Not Available [facility] [address] 05/04/2022 13:52:33 Imaging Results None recorded. Procedure Notes None recorded. Medical Equipment None Reported. Allergies Allergen ID Allergen Name Allergen Category Reaction Reaction Severity Criticality Documentation Date Start Date Code Code System Note Provider Name and Address Organization Details Recorded Time 30886 Substance with sulfonami de structure and antibacte rial mechanism of action (substanc e) medicatio n rash Not available Not available 05/04/2022 15271 8003 SNOMED Not Available [facility] 13:54:59 18992 simvastat in medicatio n Not available Not available Not available 05/04/2022 65004 RxNorm Not Available [facility] 3 13:54:59 46896 Product containin g penicilli n (product) medicatio n rash Not available Not available 05/04/2022 20954 8001 SNOMED Not Available [facility] 3 13:54:59 72707 phenazopy ridine hydrochlo ride medicatio n Not available Not available Not available 05/04/202223572 7 RxNorm with pumpk in Not Available [facility] 13:54:59 16242 atorvasta tin medicatio n rash Not available Not available 05/04/2022 61281 RxNorm Not Available [facility] 3 13:54:59 92620 ciproflox acin medicatio n Not available Not available Not available 10/14/2022 2551 RxNorm Lavonne Fatima MA null, [place] [facility] [employer] 3 11:13:30 81976 atorvasta tin calcium medicatio n Not available Not available Not available 01/24/20252017 22916 RxNorm Not Available [employer] - [employer] - prod 5 15:16:11 Medications Name Sig Start Date Stop Date Status Note LastModified by Organization Details LastModified Time status covid-/ u a-b antigen tst TEST DIRECTED TODAY [...] Not Available No t Available Fluzone High-Dose 0141-7855 (PF) 180 mcg/0.5 mL intramuscul ar syringe [...] mass index (BMI) Body weight Heart rate Body temperature Oxygen saturation Systolic And Diastolic Provider Name and Address Organization Details Last Updated DateTime 5 167.64 cm 43.1 kg/m2 709185. 16 g 103 /min 97 [degF] 94 % 138/70 mm[Hg] Roxana Mendoza [facility] 5 15:17:54 Date Recorded Body height Body mass index (BMI) Body weight Body temperature Oxygen saturation Heart rate Systolic And Diastolic Provider Name and Address Organization Details Last Updated DateTime 5 167.64 cm 43.1 kg/m2 745487. 16 g 97.5 [degF] 95 % 91 /min 130/86 mm[Hg] BASIA Guerra [facility] [employer] [facility] 5 16:39:14 Date Recorded Body height Body mass index (BMI) Body weight Heart rate Body temperature Oxygen saturation Systolic And Diastolic Provider Name and Address Organization Details Last Updated DateTime 5 167.64 cm 43.1 kg/m2 751274. 16 g 91 /min 97 [degF] 94 % 128/74 mm[Hg] Roxana Fernandezmick [facility] [employer] [facility] 5 16:57:09 Date Recorded Body height Body mass index (BMI) Body weight Heart rate Oxygen saturation Systolic And Diastolic Provider Name and Address Organization Details Last Updated DateTime 5 167.64 cm 41.3 kg/m2 375236. 65 g 90 /min 95 % 126/76 mm[Hg] [facility] [employer] [facility] 5 15:19:12 Date Recorded Body height Body mass index (BMI) Body weight Body temperature Heart rate Oxygen saturation Systolic And Diastolic Provider Name and Address Organization Details Last Updated DateTime 5 167.64 cm 41.3 kg/m2 483620. 65 g 97.95 [degF] 94 /min 96 % 128/78 mm[Hg] Andre [facility] [employer] [facility] 5 16:31:45 Social History Question Answer Notes LastModified by Organizat ion Details LastModified Time Tobacco Smoking Status Never Smoker Not Available [facility] 05/04/2022 13:52:20 Do You Have An Advance Directive? No MIGRATION.75434 27314 Information not available 05/04/2022 Are You Blind Or Do You Have Difficulty Seeing? Yes MIGRATION.40658 71717 Information not available 05/04/2022 What Is Your Level Of Caffeine Consumption? Moderate 1 Cup Coffee Daily MIGRATION.17615 43296 Information not available 05/04/2022 How Much Tobacco Do You Chew? None MIGRATION.16130 57469 Information not available 05/04/2022 In The 14 Days Before Symptom Onset, Have You Had Close Contact With A Laboratory-confi rmed COVID-19 While That Case Was Ill? No MIGRATION.95068 68263 Information not available 05/04/2022 In The 14 Days Before Symptom Onset, Have You Had Close Contact With A Person Who Is Under Investigation For COVID-19 While That Person Was Ill? No MIGRATION.30831 06459 Information not available 05/04/2022 Are You Deaf Or Do You Have Serious Difficulty Hearing? No MIGRATION.04864 90537 Information not available 05/04/2022 What Type Of Diet Are You Following? SPECIFIC Reflux Diet MIGRATION.86685 61032 Information not available 05/04/2022 Which Illicit Or Recreational Drugs Have You Used? None MIGRATION.36094 92043 Information not available 05/04/2022 Have There Been Any Changes To Your Family Or Social Situation? No MIGRATION.43312 44015 Information not available 05/04/2022 What Is The Fluoride Status Of Your Home? Unknown [email or web address] Information not available 05/11/2022 Are There Any Guns Present In Your Home? No MIGRATION.74479 27747 Information not available 05/04/2022 Do You Use Insect Repellent Routinely? No MIGRATION.12972 85307 Information not available 05/04/2022 [facility] MIGRATION.96825 94743 Information not available 05/04/2022 Guns Present In The Home? No [email or web address] Information not available 09/20/2023 Are You Able To Care For Yourself? Yes [email or web address] Information not available 09/20/2023 Are You Blind Or Do Yo Have Difficulty Seeing? No [email or web address] Information not available 09/20/2023 Are You Deaf Or Do You Have Serious Difficulty Hearing? No [email or web address] Information not available 09/20/2023 Live Alone Of With Others? Alone [email or web address] Information not available 09/20/2023 Do You Have A Medical Power Of Academic Affairs Assistant? No MIGRATION.11155 61443 Information not available 05/04/2022 What Was The Date Of Your Most Recent Tobacco Screening? 09/20/2023 [email or web address] Information not available 09/20/2023 Do You Have Any Pets? No MIGRATION.67777 03461 Information not available 05/04/2022 Do You Use Your Seat Belt Or Car Seat Routinely? Yes MIGRATION.39545 29236 Information not available 05/04/2022 Do You Have Smoke And Carbon Monoxide Detectors In Your Home? Yes MIGRATION.92074 23067 Information not available 05/04/2022 Are You Passively Exposed To Smoke? No MIGRATION.80024 42129 Information not available 05/04/2022 Are There Any Smokers In Your House? No MIGRATION.96975 58931 Information not available 05/04/2022 How Much Tobacco Do You Smoke? No MIGRATION.11501 87967 Information not available 05/04/2022 Do You Use Sunscreen Routinely? No MIGRATION.00623 00867 Information not available 05/04/2022 Has Tobacco Cessation Counseling Been Provided? No MIGRATION.00485 69423 Information not available 05/04/2022 Have You Recently Traveled Abroad? No MIGRATION.03085 86841 Information not available 05/04/2022 Do You Have Difficulty Walking Or Climbing Stairs? Yes Uses A Cane [email or web address] Information not available 05/11/2022 Do You Have Any Dietary Restrictions? No MIGRATION.42893 65477 Information not available 05/04/2022 Sex: Unknown Functional Status Question Answer Note LastModified by Organizat ion Details LastModified Time Do you use any illicit or recreational drugs? No MIGRATION.129277 5017 Information not available 05/04/2022 Do you or have you ever used any other forms of tobacco or nicotine? No MIGRATION.179332 0087 Information not available 05/04/2022 What is your level of alcohol consumption? None MIGRATION.091254 3747 Information not available 05/04/2022 Do you or have you ever used smokeless tobacco? Never used smokeless tobacco MIGRATION.297243 7256 Information not available 05/04/2022 Do you have transportation difficulties? No MIGRATION.064892 8431 Information not available 05/04/2022 Are you able to walk independently without assistance or assistive devices? YESASSIST MIGRATION.450831 3640 Information not available 05/04/2022 Do you have difficulty doing errands alone? No MIGRATION.013101 9285 Information not available 05/04/2022 Are you able to care for yourself independently? Yes MIGRATION.793905 5343 Information not available 05/04/2022 What is your occupation? retired MIGRATION.532973 8003 Information not available 05/04/2022 Do you have difficulty dressing, bathing, grooming, or toileting? No MIGRATION.276429 9334 Information not available 05/04/2022 Do you or have you ever used e-cigarettes or vape? Never used electronic cigarettes MIGRATION.793890 2538 Information not available 05/04/2022 What is your exercise level? None MIGRATION.531159 2844 Information not available 05/04/2022 Mental Status Question Answer Note LastModified by Organizat ion Details LastModified Time Do you have difficulty concentrating, remembering or making decisions? No MIGRATION.051345131 6 Information not available 05/04/2022 Family History Relationship Description Onset Age of this Age Resolved Age Notes LastModified by Organization Details LastModified Time Mother Internal capsule hemorrhage 85 MIGRATION.024 [id number] Not available 05/04/2022 13:52:34 Mother Family history of stroke 85 MIGRATION.275 8883704 Not available 05/04/2022 13:52:34 Mother Carcinoma in situ of breast MIGRATION.833 4197224 Not available 05/04/2022 13:52:34 Father Myocardial infarction 83 MIGRATION.417 4897974 Not available 05/04/2022 13:52:34 Father Diabetes mellitus MIGRATION.676 5618064 Not available 05/04/2022 13:52:34 Father Arthritis MIGRATION.211 5705325 Not available 05/04/2022 13:52:34 Notes:Mother 85 from in ternal hemorrhage from Coumadin Father 83 from [place] One older sister living and in good health Medical History Condition Response NERVE DISEASE N BLINDNESS N RHEUMATIC FEVER N KIDNEY STONES N BLADDER PROBLEMS N OTHER # 1 N POLIO N LUNG DISEASE/DISORDER N RADIATION / CHEMOTHERAPY N COPD N Other # 2 N BLOOD DISEASES N SURGERY N EAR OR HEARING PROBLEMS N MUMPS N BOWEL PROBLEMS Y DEPRESSION (INCLUDING POST ) Y STROKE/TIA N ULCERS N BENIGN PROSTATIC HYPERPLASIA N MEASLES N MYOCARDIAL INFARCTION N OBESITY Y GERD/NAUSEA Y ANEURYSM N URINARY/BLADDER/KIDNEY PROBLEMS Y INPATIENT PSYCH CARE N CORONARY ARTERY DISEASE (CAD) N ADDICTION CONCERNS N ENDOMETRIOSIS N Impotence N USE OF BLOOD THINNERS N SKIN [...] APNEA Y CHICKENPOX N INFECTIOUS DISEASE N HEART ARRHYTHMIA N PROSTATE N INSOMNIA N HIGH CHOLESTEROL / HYPERLIPIDEMIA Y HYPERTHYROIDISM N EYE PROBLEMS N NEUROLOGICAL PROBLEMS N EDEMA N CHRONIC PAIN SYNDROME N HYPOTHYROIDISM N CAROTID BLOCKAGE N CONSTIPATION N BACK / NECK PROBLEMS Y HAVE YOU BEEN HOSPITALIZED OR [facility] IN [facility] IN THE PAST YEAR ? N [...] N ALZHEIMER'S DISEASE N Brain Problems N HERPES N DEMENTIA N HEADACHES/MIGRAINES N SEIZURES/EPILEPSY N VASCULAR DISEASE N PACEMAKER N Blood Disorder N DIZZINESS N HEART DISEASE/HEART PROBLEMS N KIDNEY DISEASE N MULTIPLE SCLEROSIS N CARDIAC ARRHYTHMIA N CANCER: SPECIFY N ANESTHESIA COMPLICATIONS N ATRIAL FIBRILLATION N Gall Stones N PULMONARY EMBOLISM N AUTOIMMUNE DISEASE N Immunizations Vaccine Type Date Status Note Provider Nam e and Address Organization Details Recorded Time SARS-COV-2 (COVID-19) vaccine, UNSPECIFIED 3 completed NIRMALA Martin, [facility] [employer] [facility] 08/04/2022 14:01:26 influenza, unspecified formulation 3 completed NIRMALA Martin, [facility] 12/28/2022 12:44:44 Respiratory syncytial virus (RSV) MAB, unspecified 3 completed NIRMALA Martin, [facility] 12/28/2022 12:45:47 COVID-19, mRNA, LNP-S, PF, 100 mcg/0.5mL dose or 50 mcg/0.25mL dose 3 completed NIRMALA Martin, [facility] 12/28/2022 12:46:38 pneumococcal polysaccharide PPV23 4 completed BASIA Marroquin null, [facility] 09/20/2023 17:16:39 Influenza, split virus, quadrivalent, preservative 1 completed Not Available [facility] 05/04/2022 13:54:56 COVID-19, mRNA, LNP-S, PF, 100 mcg/0.5mL dose or 50 mcg/0.25mL dose 1 completed Not Available [facility] 05/04/2022 13:54:56 SARS-COV-2 (COVID-19) vaccine, UNSPECIFIED 1 completed Not Available [facility] 05/04/2022 13:54:56 SARS-COV-2 (COVID-19) vaccine, UNSPECIFIED 1 completed Not Available [facility] 05/04/2022 13:54:56 Influenza, high-dose, quadrivalent, PF 2 completed Not Available [facility] 05/04/2022 13:54:57 Td (adult), 5 Lf tetanus toxoid, preservative free, adsorbed 0 completed Not Available [facility] 05/04/2022 13:54:57 Pneumococcal conjugate PCV 13 0 completed Not Available [facility] 05/04/2022 13:54:57 Past Encounters Encounter ID Performer Location Encounter Start Date Encounter Closed Date Diagnosis/Indication Diagnosis SNOMED-CT Code Diagnosis ICD10 Code Diagnosis IMO Codes Diagnosis Note [id number] Kaley Natarajan MD S_[facility] Internal Med [facility] [address] [address] 05/13/2020 00:00:00 05/13/2020 16:03:36 [id number] _ATHN_MIGR ATION_1 _ATHENA_M IGRATION_ DEFAULT_1 _1 , 07/29/2020 00:00:00 07/29/2020 17:15:46 [id number] Kaley Natarajan MD [facility] Internal Med [facility] [address] [address] 09/16/2020 00:00:00 09/16/2020 15:58:03 [id number] Seth Neal DPM S_[facility] Podiatry [facility] [address] [place] [address] 10/01/2020 00:00:00 10/01/2020 22:36:48 [id number] S[facility] [place] [address] [place] [address] 11/02/2020 00:00:00 11/02/2020 16:07:35 [id number] Seth Neal DPM [facility]_G Podiatry [facility] [address] [place] [address] 11/03/2020 00:00:00 11/03/2020 15:01:12 [id number] _ATHN_MIGR ATION_1 _ATHENA_M IGRATION_ DEFAULT_1 _1 , 11/11/2020 00:00:00 11/11/2020 15:36:19 [id number] Kaley Natarajan MD [facility] Internal Med [facility] [address] [address] 01/20/2021 00:00:00 01/20/2021 16:46:05 [id number] Kaley Natarajan MD [facility] Internal Med [facility] [address] [address] 05/19/2021 00:00:00 05/19/2021 16:35:32 [id number] Kaley Natarajan MD [facility] Internal Med [facility] [address] [address] 09/15/2021 00:00:00 09/15/2021 16:50:12 [id number] _ATHN_MIGR ATION_1 _ATHENA_M IGRATION_ DEFAULT_1 _1 , 12/01/2021 00:00:00 12/01/2021 16:58:38 [id number] Kaley Natarajan MD [facility]_GMG Internal Med [facility] [address] [address] 01/12/2022 00:00:00 01/12/2022 16:46:56 [id number] Kaley Natarajan MD S_[facility] Internal Med [facility] [address] [address] 05/11/2022 16:10:31 05/11/2022 16:50:42 Adult health examination 703792312 Z00.00 Screening for disorder 946024173 Z13.9 Diabetes mellitus 641837 09 E11.9 Hyperlipidemia 66810064 E78.5 Gastroesop hageal reflux disease 656737706 K21.9 Obstructiv e sleep apnea syndrome 48886774 G47.33 Morbid obesity 471455580 E66.01 [id number] Vielka De Los Santos MD [facility] General Surgery 2043 [facility], [facility] [address] [place] [address] 06/01/2022 15:52:28 06/01/2022 16:33:33 Gastroesophageal reflux disease 713578602 K21.9 [id number] Flaco Ramesh MD [facility] Urology [address] [place] [address] 08/11/2022 11:31:34 08/11/2022 12:15:21 Benign prostatic hyperplasia 430173835 N40.1 Severe LUTS. BPH and OAB. Plan cystoscopy . Consider treating BPH beyond alpha meredith.OA B. discussed bladder stimulator . [id number] Kaley Natarajan MD [facility] Internal Med [facility] 2043 [facility] [address] [place] [address] 09/14/2022 15:19:22 09/14/2022 16:00:49 Gastroesophageal reflux disease 226207653 K21.9 Hypercholesterolemia 136 25562 E78.00 Obstructiv e sleep apnea syndrome 22744154 G47.33 Type 2 cayla betes mellitus without complication 272839827 E11.9 Obese class III 52896797 5 E66.01 [id number] Flaco Ramesh MD [facility] Urology [address] [address] 2022 12:04:50 2022 12:42:27 Benign prostatic hyperplasia 998755497 N40.1 Cystoscopy reveals obstructin g bilobar prostate. bladder is trabeculat ed. The patient is a good candidate for a Urolift since he cannot tolerate the meds. The procedure risks and alternativ es were discussed and he would like to schedule [id number] Seth Neal DPM [facility] Podiatry [facility] [address] [place] [address] [address] [place] [address] 10/25/2022 15:53:39 11/02/2022 17:00:14 Onychomycosis of toenails 436168026 B35.1 bilateral great toenailsna ils debrided today without incidentEd ucated on treatment optionsPat ient would like to return for total nail avulsion both great toenails in llow-up for procedure [id number] Vielka De Los Santos MD [facility] General Surgery 2043 [facility], [facility] [address] [place] [address] 11/30/2022 13:55:28 11/30/2022 14:16:31 Gastroesophageal reflux disease 509423445 K21.9 Gastroesop hageal reflux disease without esophagitis 759352651 K21.9 [id number] Kaley Natarajan MD [facility] Internal Med 2043 [facility] [place] [address] 01/25/2023 16:31:05 01/25/2023 17:11:29 Hypercholesterolemia 15044814 E78.00 Type 2 cayla betes mellitus without complication 648068034 E11.9 Obstructiv e sleep apnea syndrome 12420942 G47.33 Morbid obesity 412944108 E66.01 Insomnia 529333940 G47.0 0 [id number] Seth Neal DPM [facility] Podiatry [facility] [address] [address] 02/02/2023 15:45:10 02/02/2023 20:29:20 Onychomycosis of toenails 982924127 B35.1 bilateral great toenailsto anthony nail avulsion performed bilateral great toenailswo und care instructio ns givenDress ing instructio ns givenMonit or for signs of infection and presents seek medical attention immediatel yFollow-up in 10 days for topical ketoconazo le and wound check Dystrophia unguium 56939 009 L60.3 bilateral great toenails as above [id number] Seth Neal DPM [facility] Podiatry [facility] [address] [address] 02/14/2023 16:55:53 02/15/2023 16:44:52 Onychomycosis of toenails 396640586 B35.1 bilateral great toenailsto anthony nail avulsion performed last visit and healedDC wound careRx ketoconazo le, apply to toenails daily until regrownFol low-up in 3-4 months Dystrophia unguium 11463 009 L60.3 Nails 3 through 10 were debrided with sharp mechanical debridemen t without incident. Nails were debrided and greater than 50% length and thickness where needed. [id number] Vielka De Los Santos MD [facility] General Surgery 2043 [facility], [facility] [address] [place] [address] 05/03/2023 13:52:52 05/03/2023 14:20:54 Gastroesophageal reflux disease without esophagitis 706268804 K21.9 [id number] Seth Neal DPM [facility] Podiatry [facility] [address] [address] 05/16/2023 17:49:30 06/02/2023 16:38:17 Onychomycosis of toenails 269425096 B35.1 bilateral great toenailsto anthony nail avulsion performed last visit and healedDC wound careRx ketoconazo le, apply to toenails daily until regrownFol low-up in 3-4 months [id number] Kaley Natarajan MD [facility] Internal Med [facility] 2043 [facility], [facility] [address] [place] [address] 05/24/2023 16:29:06 05/24/2023 17:00:25 Hypercholesterolemia 78879407 E78.00 Type 2 cayla betes mellitus without complication 964208462 E11.9 Obstructiv e sleep apnea syndrome 57630871 G47.33 Obese class III 93818083 5 E66.01 [id number] Seth Neal DPM [facility] Podiatry [facility] [address] [address] 08/15/2023 17:23:19 08/24/2023 12:03:53 Dystrophia unguium 72901414 L60.3 Nails were debrided without incidentfo llow-up for routine nail care Onychomyco sis of toenails 983774798 B35.1 bilateral great toenailsRe solved with total nail avulsionma y DC ketoconazo lefollow-u p as needed Unable to cut own toenails 537428169 Z74.1 [id number] Kaley Natarajan MD [facility] Internal Med [facility] [address] [address] 09/20/2023 16:26:51 09/20/2023 17:02:53 Adult health examination 760359464 Z00.00 Screening for disorder 977156712 Z13.9 Hypercholesterolemia 136 09983 E78.00 Type 2 cayla betes mellitus without complication 486555853 E11.9 Obese class III 94730572 5 E66.01 Neuropathy 326874234 G62 .9 Gastroesop hageal reflux disease without esophagitis 740715614 K21.9 [id number] Seth Neal DPM S_[facility] Podiatry [facility] [address] [address] 11/21/2023 16:53:34 11/22/2023 12:49:27 Dystrophia unguium 80715924 L60.3 Nails were debrided without incidentfo llow-up for routine nail care Unable to cut own toenails 177425652 Z74.1 secondary to obesity Diabetes mellitus 048898 09 E11.9 continue PCP recommenda tionscurre ntly on glimepirid econtinue supportive shoe gearCheck feet daily for wounds infectionT o follow-up in 3 months [id number] Vielka De Los Santos MD [facility] General Surgery [address] [address] 11/22/2023 15:39:05 11/22/2023 15:56:49 Gastroesophageal reflux disease without esophagitis 569177766 K21.9 [id number] Kaley Natarajan MD [facility] Internal Med [facility] [address] [address] 01/29/2024 16:32:51 01/29/2024 17:18:49 Hypercholesterolemia 52622142 E78.00 Type 2 cayla betes mellitus without complication 952615572 E11.9 Obstructiv e sleep apnea syndrome 95472693 G47.33 Obese class III 64911261 5 E66.01 Disorder of prostate 302 23601 N42.9 [id number] Seth Neal DPM [facility] Podiatry [facility] [address] [address] 02/20/2024 16:49:37 03/01/2024 15:12:06 Diabetes mellitus 98935139 E11.9 continue PCP recommenda tionscurre ntly on glimepirid econtinue supportive shoe gearCheck feet daily for wounds infectionT o follow-up in 3 months Dystrophia unguium 26387 009 L60.3 Nails were debrided without incidentfo llow-up for routine nail care Unable to cut own toenails 896360901 Z74.1 secondary to obesity [id number] Kaley Natarajan MD [facility] Internal Med [facility] [address] [address] 05/20/2024 16:25:56 05/20/2024 17:04:32 Hypercholesterolemia 99581475 E78.00 Obstructiv e sleep apnea syndrome 08164525 G47.33 Type 2 cayla betes mellitus without complication 909382666 E11.9 Body mass index 40+ - severely obese 233794353 Z68.41 Depressive disorder 3548 9007 F32.A [id number] Seth eNal DPM [facility] [place] [address] [place] [address] 05/21/2024 16:13:17 05/23/2024 10:52:08 Diabetic on oral treatment 734218524 Z79.84 Diabetes mellitus 194955 09 E11.9 continue PCP recommenda tionscurre ntly on glimepirid econtinue supportive shoe gearCheck feet daily for wounds infectionT o follow-up in 3 months Dystrophia unguium 25141 009 L60.3 Nails were debrided without incidentfo llow-up for routine nail care [id number] MD LAURENCE [facility] Internal Med [facility] [address] [address] 06/26/2024 14:32:25 06/26/2024 15:33:34 Tinea corporis 29423999 B35.4 [id number] Seth Neal DPM [facility] Podiatry [facility] [address] [address] 08/22/2024 16:28:26 08/26/2024 07:47:19 Diabetes mellitus 70156045 E11.9 continue PCP recommenda tionscurre ntly on glimepirid econtinue supportive shoe gearCheck feet daily for wounds infectionT o follow-up in 3 months Dystrophia unguium 03858 009 L60.3 1009 Nails were debrided without incidentfo llow-up for routine nail care [id number] Kaley Natarajan MD [facility] Internal Med [facility] 2043 [facility] [place] [address] 09/23/2024 16:35:44 09/23/2024 17:30:46 General examination of patient 214390156 Z00.00 [id number] Hypercholesterolemia 136 42957 E78.00 Type 2 cayla betes mellitus 12973284 E11.9 [id number] Obese class III 55984165 5 E66.01 Gastroesop hageal reflux disease 768852883 K21.9 Neuropathy 062026421 G62 .9 Lump in up per outer quadrant of left breast 9492119442 67403 N63.21 8536398954 [id number] Vielka De Los Santos MD S_G General Surgery 2043 [facility], [facility] [place] [address] 11/20/2024 14:58:29 11/20/2024 15:49:33 Gastroesophageal reflux disease without esophagitis 580769278 K21.9 [id number] Seth Neal DPM [facility] Podiatry [facility] [address]43 [facility] [place] [address] 11/21/2024 16:20:33 11/27/2024 13:44:19 Diabetes mellitus 12701833 E11.9 continue PCP recommenda tionscurre ntly on glimepirid econtinue supportive shoe gearCheck feet daily for wounds infectionT o follow-up in 3 months Dystrophia unguium 51687 009 L60.3 1009 Nails were debrided without incidentfo llow-up for routine nail care Health Concerns Section Related Observation LastModified by Organization Detai ls LastModified Time None Recorded Concern Status LastModified by Organization Details LastModified Time None Recorded Advance Directives Directive N: Payers Insurance Date Sequence Insurance Name Policy Number Policy Pryor Covered Member ID Pryor Member ID Guarantor Name 01/20/2025 1 [facility] (MEDICARE REPLACEMENT/A DVANTAGE - HMO) [id number] Livia Fletcher [id number] [place] E Justine Notes Date Note Type Note Provider Name and Address Organization Details Recorded Time 025 text/h tml Patient Name: Livia BlevinsmanDate Of Service: Monday ( 06.26.2024 ): 1945 Age: 78 There has been approximately a 4 lb weight loss since 05/20/2024. This represents approximately a 1.5% change in weight. Weight change attributable to lifestyle changes. Vital Signs:Blood Pressure: Sitting Rt. Arm 138/138Pulse: Sitting 103 /min and RegularRespiratory Rate: 16Height 66 in or 1.7 mWeight 267 lb or 121.1 kgBMI 43.1Temperature: 97 F or 36.1 CPulse Oximetry: 94 % at rest on no oxygen Chief Complaint: Addressed in HPI Problems or conditions discussed in the HPI were the only ones reviewed during the encounter.Only social and family history addressed in the HPI were reviewed during this encounter. Attendant(s): NoneConstitutional and Systemic Symptoms:none Medication Reconciliation: from medication list. History of Present Illness #1. Rash in the intertriginous areas of the groin. Also extending from the lower abdomen. This appears to be a inflammatory fungal type of infection. Has had no fever chills or other systemic symptomatology. Pills and discomfort with this. Will call in some anti-inflammatory medications the form of some antifungal powder. See if there is any improvement. There is no sign of any abdominal cellulitis at this time. Appears to be more related to the actual fungal infection.: Active Medication ListFlomax 0.4 MG (CAPSULE - ORAL) Once DailyCpap 5 CmSolifenacin Succinate 10 MG TABLET Once DailyPravachol 80 MG Onc DailyOxybutynin 10 MG TABLET, FILM COATED, EXTENDED RELEASE Once DailyFamotidine 40 MG TABLET Once DailyMultivitamin DailyRemeron 15 MG (TABLET - ORAL) Once DailyZetia 10 MG (TABLET - ORAL) DailyActos 45 MG (TABLET - ORAL) Once DailyAmaryl 4MG Once DailyNexium 40 MG (CAPSULE, DELAYED REL PELLETS - ORAL) QdFenofibrate 160 MG (TABLET - ORAL) DailyHydroxyzine 25 MG (TABLET - ORAL) One Three Times A DayGlucophage 500 MG (TABLET - ORAL) 2 Am 2 PmSingulair 10 MG (TABLET - ORAL) Once DailyNaproxen 500 MG (TABLET - ORAL) One Twice A DayZoloft 100 MG (TABLET - ORAL) Daily Adverse Drug Reactions ReviewedSulfa Drugs RashAtorvastatin Calcium RashPenicillin Rash Vaccination and Immunization(X) 2022-01 INFLUENZA( ) 2019-10 TETANUS BOOSTER( ) 2020-01 PREVNAR 13 GC(X) 2021-01 COVID MODERNA(X) 2021-01 COVID BOOSTER MODERNA(X) 2021-01 COVID BOOSTER PFIZER( ) 2021-01 RSV( ) 2023-09 PNEUMOCOCCAL 23 Surgical Viocypc2859-63 Deviated Uzgtpx0477-56 Tonsillectomy Preventative Testing( ) 05/16/2024 Albumin 4.5 G/DL N( ) 05/16/2024 PSA 2.32 NG/ML N 05/16/2026( ) 05/16/2024 Micro Albumin 0.8 MG/DL N( ) 05/16/2024 HAIC 7.0 % OF TOTAL HGB H( ) 12/29/2023 Optometry( ) 12/23/2020 Ophthalmology( ) 07/13/2020 Upper Endoscopy( ) 07/13/2020 Colonoscopy (10 Years) 07/13/2030 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 Patient is a 78-year-old male diabetic who presents for diabetic foot care overall he states he is doing well he states that he recently dropped a soup can on his right great toe but states since the injury his toe is no longer painful. Patient denies any other complaints. Seth Neal DPM [address] [facility], [facility] [address], [place], [address], [place] [facility] 08/22/2024 17:17:53 025 text/h tml Patient Name: Livia Hunter Of Service: Monday ( 09.23.2024 ): 1945 Age: 78 Vital Signs:Blood Pressure: Sitting Rt. Arm 128/74Pulse: Sitting 16 /min and RegularRespiratory Rate: 12Height 66 in or 1.7 mWeight 267 lb or 121.1 kgBMI 43.1Temperature: 97 F or 36.1 CDCCT HAIC: 7.0 Calculated MB mg%Pulse Oximetry: 94 % at rest on no oxygen Chief Complaint: Addressed in HPI Problems or conditions discussed in the HPI were the only ones reviewed during the encounter.Only social and family history addressed in the HPI were reviewed during this encounter. A significant, separate E/M service was performed to evaluate the current and new problems. Attendants(s) + NoneConstitutional and Systemic Symptoms:none Medication Reconciliation: from medication list. History of Present Illness Reviewed the findings of the preventative health visit. Addressed all areas with the patient, patient's family or caregivers. Preventative examinations and testing immunizations - vaccinations, colonic neoplasm screening and mammograms all reviewed and ordered where patient was amenable to the recommendations. Cognitive function see HPI but demonstrated no overall change in cognitive status . Depression addressed and where necessary medications were adjusted or instituted. End of life and living will briefly discussed with patient and where these can be filled out and legally executed. Other blood and imaging studies were ordered if considered necessary. Other recommendations may be found in the encounter note. #1. Type II Hypercholesterolaemia: Currently not taking medication. No interval complaints of any muscle pain or arthralgia. No significant liver changes with medications. Last lipid panel: excellent control. Therapy reviewed regarding treatment of cholesterol management and include diet and Pravachol and Zetia. #2. Type II Diabetes: Has had no polyuria polyphagia or polydipsia. Has had no hypoglycemic like responses. No new history of any numbness, tingling, weakness or visual problems. No nausea, anorexia or other constitutional symptoms. There has been no foot problems or non healing lesions. The last HAIC was DCCT HAIC: 7.0 Calculated MB mg%. CGM: FreeStyle Mariela. Average blood sugars 100-115 mg%. Checking sugars : several times a week. Medication Types Include: TZD, Metformin and Sulfonylureas Secondary complications include neuropathy. Macro-vascular complications include none. Therapy reviewed regarding diabetic management and include Actos, Amaryl and Glucophage Compliance: good Renal Protection: not required at this stage Lipid management: Pravachol and Zetia Urinary microalbumin: has seen eye doctor within the last year . Ophthalmological: Normal. Control: remained the same #3. Hx of esophageal reflux currently stable. Hx of Complications: every meal The severity, duration and intensity of symptoms have a regular. Frequency: no nausea, eructation, vomiting, hematemesis, dysphagia, velopharyngeal insufficiency and odynophagia Treatment consists medications taken on no basis. Current therapy includes no. There has been and the possibility of trying to reduce the frequency of the use of any PPI inhibitors and try H2 antagonists to see if symptoms can be controlled with lease intensive therapy since a number of complications are associated with chronic prolonged use of PPI inhibitors. No change in he frequency or intensity of symptoms. Has had both legs melena. Has had no limitations . Discussed use of H2 antagonists none. #4. Neuropathy: History of neuropathy involving none. No interval complaints of any increasing numbness, tingling, weakness or ataxia. ADL: none Number(s) of falls: Class 3 Obesity DE > 40 since last examination. Using support device: GLP-1 medications that are used to treat diabetes Medication: No. #5. Hx of obesity. Currently No and was offered to be evaluated and instructed by telemetry technician on weight loss diet. Has tried numerous dietary support and supplements with no benefit. Instructed on the health consequences of the obese status particularly cancer - diabetes and heart disease. Discussed other modalities of weight loss no . Potential candidate for bariatric surgery: No. Wishes to be evaluated by Dietary: No and was offered to be evaluated and instructed by telemetry technician on weight loss diet. Wellness Evaluation PHQ-2 Score Last Two Weeks Last Two Weeks: 0: Not at all 1: Several Days 2: More than half 3: Almost Every day #1. Little interest or pleasure in doing things: Not At All :Score 0#2. Feeling down, depressed, or hopeless: Not At All :Score 0Score 0FAST Stage: 1 No functional decline Basic ADLS AmbulationNormalGroomingGeneral Personal Hygiene NormalToiletryNormalDressingDresses Without AssistanceEatingFeeds Self Instrumental ADLS Managing Finances YesManaging Health YesShopping YesPreparing Meals YesUsing Technology YesHouse Work YesTaking Care of Pets YesTaking Care Children YesTransportation Yes Additional Topics Advanced DirectivesDeclinedLiving WillDeclined Mini Mental Status Exam OrientationYear 1Season 1Month 1Date 1Day 1Score: 5 LocationCountry 1County 1City 1Facility 1Room 1Score: 5 RegistrationHouse 1Car 1Airplane 1Score: 3 AttentionD 1L 1R 1O 1W 1Score: 5 RecallHouse 1Car 1Airplane 1Score: 3 LanguageWatch 1Pencil 1Score: 2 RepetitionNo ifs, ands or buts 1Score: 1 SentenceWrite a Sentence 1Score: 1 ReadingClose Eyes 1Score: 1 PentagonsCopy Design 0Score: 0 CommandHand 1Fold In Half 1Put Down 1Score: 3 Total Test Score: 29 /30 Normal Possible Functional ImpairmentActivities of Daily Living: Probably NormalCommunication: Probably NormalMemory: Probably Normal Social and Physical Activities Drinking History: NoneExercise 20 Minutes per Week: No, do not exercise muchDifficulty Driving Car: NoOther Problems: None,Falling,Orthostatic,Trouble Eating,Teeth Denture Problems,Problems using Telephone,Tiredness or fatigue Smoking HistoryDoes not smokeCannabis HistoryDoes Not Use End Of Wellness Section Active Medication ListFlomax 0.4 MG (CAPSULE - ORAL) Once DailyCpap 5 CmSolifenacin Succinate 10 MG TABLET Once DailyPravachol 80 MG Onc DailyOxybutynin 10 MG TABLET, FILM COATED, EXTENDED RELEASE Once DailyFamotidine 40 MG TABLET Once DailyMultivitamin DailyRemeron 15 MG (TABLET - ORAL) Once DailyZetia 10 MG (TABLET - ORAL) DailyActos 45 MG (TABLET - ORAL) Once DailyAmaryl 4MG Once DailyNexium 40 MG (CAPSULE, DELAYED REL PELLETS - ORAL) QdFenofibrate 160 MG (TABLET - ORAL) DailyHydroxyzine 25 MG (TABLET - ORAL) One Three Times A DayGlucophage 500 MG (TABLET - ORAL) 2 Am 2 PmSingulair 10 MG (TABLET - ORAL) Once DailyNaproxen 500 MG (TABLET - ORAL) One Twice A DayZoloft 100 MG (TABLET - ORAL) Daily Adverse Drug Reactions ReviewedSulfa Drugs RashAtorvastatin Calcium RashPenicillin Rash Vaccination and Immunization (X) 2022-01 INFLUENZA( ) 2019-10 TETANUS BOOSTER( ) 2020-01 PREVNAR 13 GC(X) 2021-01 COVID MODERNA(X) 2021-01 COVID BOOSTER MODERNA(X) 2021-01 COVID BOOSTER PFIZER( ) 2021-01 RSV( ) 2023-09 PNEUMOCOCCAL 23Immunizations and Vaccinations Discussed and Implemented if feasible In the Office. Else referred to pharmacies. 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 Family HistoryMother 85 from internal hemorrhage from CoumadinFather 83 from MIOne older sister living and in good health Active Medication ListFlomax 0.4 MG (CAPSULE - ORAL) Once DailyCpap 5 CmSolifenacin Succinate 10 MG TABLET Once DailyPravachol 80 MG Onc DailyOxybutynin 10 MG TABLET, FILM COATED, EXTENDED RELEASE Once DailyFamotidine 40 MG TABLET Once DailyMultivitamin DailyRemeron 15 MG (TABLET - ORAL) Once DailyZetia 10 MG (TABLET - ORAL) DailyActos 45 MG (TABLET - ORAL) Once DailyAmaryl 4MG Once DailyNexium 40 MG (CAPSULE, DELAYED REL PELLETS - ORAL) QdFenofibrate 160 MG (TABLET - ORAL) DailyHydroxyzine 25 MG (TABLET - ORAL) One Three Times A DayGlucophage 500 MG (TABLET - ORAL) 2 Am 2 PmSingulair 10 MG (TABLET - ORAL) Once DailyNaproxen 500 MG (TABLET - ORAL) One Twice A DayZoloft 100 MG (TABLET - ORAL) Daily Adverse Drug Reactions ReviewedSulfa Drugs RashAtorvastatin Calcium RashPenicillin Rash Vaccination and Immunization (X) 2022-01 INFLUENZA( ) 2019-10 TETANUS BOOSTER( ) 2020-01 PREVNAR 13 GC(X) 2021-01 COVID MODERNA(X) 2021-01 COVID BOOSTER MODERNA(X) 2021-01 COVID BOOSTER PFIZER( ) 2021-01 RSV( ) 2023-09 PNEUMOCOCCAL 23Immunizations and Vaccinations Discussed and Implemented if feasible In the Office. Else referred to pharmacies. 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 PT IS DOING WELL WITH PANTOPRAZOLE 40 / FAMOTIDINE 40 MG . NO GERD SX NOW . Vielka De Los Santos MD [address], [facility] [address], [place], [address], [facility] [employer] [facility] [employer] [facility] 11/20/2024 15:53:55 025 text/h tml . Patient is a 79-year-old male diabetic who returns for diabetic foot care. Patient overall is doing well he is weight-bearing without assistance. Patient denies any open wounds or injury. Patient states he would like his nails cut. Seth Neal DPM [address], [address], [place], [address], [facility] [employer] [facility] [employer] [facility] 11/25/2024 09:07:07
--- OUTSIDE RECORDS SUMMARY | 2025-01-24 15:06 | XMS_ITS | Clinical Summary ---
Author Organization [facility] [employer] Address [address] [place] [address] Care Team Providers Care Court Advocate Name Role Phone Jairo Natarajan MD Primary Care Provider [phone] Source Comments [facility] [employer],non-owned Affiliates and Associated Physician Practices is amultiple site organization consisting of ambulatory clinics and hospital sitesin [place], [place], [place] and [place]. This disclosure is being madepursuant to the Care Everywhere program and may not contain all information available regarding this patient. Last updated 17.[facility] [employer] Allergies Active Allergy Reactions Criticality Noted Date [...] Active Garlic 1000 MG Activ e Saw [place], Serenoa repens, (SAW [place] PO) Active POTASSIUM PO Active Theodore-3 Fatty Acids (FISH OIL PO) Active VITAMIN [...] Comments Blood Pressure 138/72 03/09/2017 11:04 AM SSRS REPORT DEVELOPER Pulse 90 03/09/2017 11:04 AM SSRS REPORT DEVELOPER Temperature 36.8 C (98.3 F) 03/09/2017 11:04 AM SSRS REPORT DEVELOPER Respiratory Rate 16 03/09/2017 11:04 AM SS[employer] REPORT DEVELOPER Oxygen Saturation 96% 03/09/2017 11:04 AM SSRS REPORT DEVELOPER Inhaled Oxygen Concentration - - Weight 120.2 kg (265 lb) 03/09/2017 11:04 AM SSRS REPORT DEVELOPER Height 167.6 cm (5' 6) 03/09/2017 11:04 AM SSRS REPORT DEVELOPER Body Mass Index 42.77 03/09/2017 11:04 AM SSRS REPORT DEVELOPER Plan of Treatment Health Maintenance Due Date [...] patient's age to complete this topic Insurance [facility] MANAGED MEDICARE ADV Care Teams Court Advocate Relationship Specialty Start Date End Date Jairo Natarajan MD [address] [place] [address] [address] [place] [address] PCP - General Internal Medicine 03/09/17
--- OUTSIDE RECORDS SUMMARY | 2025-01-24 15:06 | XMS_ITS | Continuity of Care Document ---
Author Organization [place] [facility], [facility] [place] Address [address] [place] [address] Care Team Providers Care Manager Store Name Role Phone KALEY NATARAJAN Primary Care Provider Assessment Encounter Date Assessment Date Assessment LastModified by Organization Details LastModified Time 11/21/2024 11/21/2024 This note is dictated and transcribed by [employer]. Merchandising Director variances may occur. Despite proofreading, typographical errors may occur. Occasional wrong-word or 'kutag-u-uelk' substitutions may have occurred due to the inherent limitations of voice recording. Read the chart carefully and recognize, using context, where substitutions have occurred. [email or web address] Not available 11/25/2024 09:01:02 Plan of Treatment Reminders Order Date Submit Date Provider Last Modified By Organization Details Last Modified Time Details Appointments [facility] Patient 15 2025 03:45P M Seth Neal DPM Not available Not available Not available [facility] Patient 15 2025 02:15P M Vielka De Los Santos MD Not available Not available Not available Lab None recorded . Referral None recorded . Procedures None recorded . Surgeries None recorded . Imaging None recorded . Medication Orders None recorded . Patient TargetsNo targets recorded. Patient InstructionsNo instructions recorded. Reason for Referral None Reported. Problems Name Problem SNOMED Code Status Onset Date Resolution Date Notes Provider Name and Address Organization Details Recorded Time Insomnia 891854506 Active Not Available [facility] 3 13:53:19 Osteoarthr itis 140586976 Active Not Available [facility] 3 13:53:20 Dysphagia 51158447 Active Not Available [facility] 3 13:53:20 Periodic limb movement disorder 096074445 Active Not Available [facility] 3 13:53:20 Allergic rhinitis 57359065 Active Not Available [facility] 3 13:53:21 Fatigue 95349043 Active Not Available [facility] 3 13:53:21 Vitamin deficiency 12920729 Active Not Available [facility] 3 13:53:21 Hyperchole sterolemia 33108341 Active 2017 Not Available [facility] 3 13:53:19 Prostate specific antigen outside reference range 187428742 Active 2017 Not Available [facility] 3 13:53:19 Irritable bowel syndrome with diarrhea 308916122 Active 2017 Not Available [facility] 3 13:53:19 Osteoarthr itis of knee 392115077 Active 2017 Not Available [facility] 3 13:53:19 Depressive disorder 21441508 Active 2017 Not Available [facility] 3 13:53:20 Obstructiv e sleep apnea syndrome 79659598 Active 2017 Not Available [facility] 3 13:53:21 Body mass index 40+ - severely obese 781067616 Active 2018 Not Available [facility] 3 13:53:20 Gastroesop hageal reflux disease 499536468 Active 2019 Not Available [facility] 3 13:53:19 Irregular heart beat 205552097 Active 2020 Not Available [facility] 3 13:53:20 Porokerato sis 830093648 Active 2020 Not Available [facility] 3 13:53:20 Tinea cruris 100477300 Active 2021 Not Available [facility] 3 13:53:20 Obesity 871499796 Active 2021 Not Available [facility] 3 13:53:20 Benign prostatic hyperplasi a 492951822 Active 2021 Not Available [facility] 3 13:53:20 Gastroesop hageal reflux disease without esophagiti s 077602688 Active 2021 Not Available [facility] 3 13:53:19 Morbid obesity 493348014 Active 2021 Not Available [facility] 3 13:53:19 Obese class III 049068497 Active 2022 Kaley Natarajan MD [address], [address], [place], [address] , [employer] [facility] [employer] 3 15:47:45 Onychomyco sis of toenails 849916261 Active 2022 Seth Neal DPM [address], [address], [place], [address] , [employer] [facility] [employer] 3 16:03:20 Dystrophia unguium 13500838 Active 2022 Seth Neal DPM [address], [place], [address] , [employer] [facility] [employer] 5 17:16:54 Tinea corporis 55534181 Active 2022 Kaley Natarajan MD [address], [address], [place], [address] , [employer] [facility] [employer] 3 16:02:16 Acute sinusitis 81042956 Active 2023 Kaley Natarajan MD [address], [address], [place], [address] , [employer] [facility] [employer] 4 16:03:22 Neuropathy 282571252 Active 2023 Kaley Natarajan MD [address], [place], [address] , [employer] [facility] [employer] 4 16:52:34 Diabetes mellitus 97057486 Active 2023 Seth Neal DPM [address], [place], [address] , [employer] [facility] [employer] 5 09:01:03 Unable to cut own toenails 877529148 Active 2023 Seth Neal DPM [address], [place], [address] , [employer] 4 17:32:11 Disorder of prostate 38816689 Active 2023 Kaley Natarajan MD [address], [place], [address] , [employer] 4 17:08:48 Diabetic on oral treatment 994794191 Active 2024 Seth Neal DPM [address], [place], [address] , [employer] 5 17:23:32 Type 2 diabetes mellitus 98887435 Active 2024 Kaley Natarajan MD [address], [place], [address] , [employer] 5 17:20:07 Lump in upper outer quadrant of left breast 9535279242530 03 Active 2024 Kaley Natarajan MD [address], [place], [address] , [employer] 5 17:23:38 Lump of subareolar area of left breast 6237473688729 9107 Active 2024 Roxana Mendoza [place], [place] [employer] [facility] [employer] [facility] 5 14:54:19 Notes:Some problems listed i n Document: #[id number] could not be added to this patient's chart. Please review this document and add these problems to the patient's chart manually as needed. Problem Notes None recorded. Procedures Surgical History Date Name Laterality Status Provider Name and Address Organization Details Recorded Time 11/22/19 25 Nail Debridement completed Seth Neal DPM [address], [place], [address], [employer] [facility] [employer] 11/25/2024 09:02:18 08/23/19 25 Nail Debridement completed Seth Neal DPM [address], [place], [address], [facility] [employer] [facility] [employer] [facility] 08/22/2024 17:16:44 05/22/19 25 Nail Debridement completed Seth Neal DPM [address], [place], [address], [facility] [employer] [facility] [employer] 05/23/2024 09:47:05 02/20/20 24 Nail Debridement completed Seth Neal DPM [address], [place], [address], [facility] [employer] [facility] [employer] [facility] 02/21/2024 13:59:43 11/21/19 24 Nail Debridement completed Seth Neal DPM [address], [place], [address], [facility] [employer] [facility] [employer] 11/21/2023 17:30:19 09/20/19 24 Medicare Wellness CPT Code, subsequent completed Mirian Demarco RN [place] [employer] [facility] [employer] 09/20/2023 16:44:50 08/15/19 24 Nail Debridement completed Seth Neal DPM [address], [place], [address], [facility] [employer] [facility] [employer] 08/15/2023 17:48:45 02/15/20 23 Nail Debridement completed Seth Neal DPM [address], [place], [address], [facility] [employer] [facility] [employer] 02/15/2023 11:14:26 02/03/20 23 Blank Procedure Note completed Seth Neal DPM [address], [place], [address], [facility] [employer] [facility] [employer] [facility] 02/02/2023 16:19:41 10/26/19 23 Nail Debridement completed Seth Neal DPM [address], [place], [address], [facility] [employer] [facility] [employer] 10/25/2022 16:05:06 10/14/19 23 Cystoscopy (male) completed Flaco Ramesh MD [address], [place], [address], [facility] [employer] [facility] 2022 12:55:36 05/12/19 Medicare Wellness CPT Code, subsequent completed Mirian Demarco RN [facility] [employer] [facility] 05/11/2022 16:24:07 EGD completed Not Available [facility] 03/2022 13:52:33 colonoscopy completed Not Available [facility] 05/04/2022 13:52:33 tonsillectomy completed Not Available [facility] 05/04/2022 13:52:33 biopsy of prostate completed Not Available [facility] 05/04/2022 13:52:33 manipulation of displaced nasal septum completed Not Available [facility] 05/04/2022 13:52:33 Adenoid Surgery completed Not Available [facility] 05/04/2022 13:52:33 Colonoscopy completed Not Available [facility] 05/04/2022 13:52:33 Endoscopy completed Not Available [place] [id number] 05/04/2022 13:52:33 Imaging Results None recorded. Procedure Notes None recorded. Medical Equipment None Reported. Allergies Allergen ID Allergen Name Allergen Category Reaction Reaction Severity Criticality Documentation Date Start Date Code Code System Note Provider Name and Address Organization Details Recorded Time 57100 Substance with sulfonami de structure and antibacte rial mechanism of action (substanc e) medicatio n rash Not available Not available 05/04/2022 46769 8003 SNOMED Not Available [facility] 13:54:59 25555 simvastat in medicatio n Not available Not available Not available 05/04/2022 10002 RxNorm Not Available [facility] 3 13:54:59 98078 Product containin g penicilli n (product) medicatio n rash Not available Not available 05/04/2022 19419 8001 SNOMED Not Available [facility] 13:54:59 21257 phenazopy ridine hydrochlo ride medicatio n Not available Not available Not available 05/04/2022 20621 7 RxNorm with pumpk in Not Available [facility] 13:54:59 49183 atorvasta tin medicatio n rash Not available Not available 05/04/2022 17871 RxNorm Not Available [facility] 3 13:54:59 02236 ciproflox acin medicatio n Not available Not available Not available 10/14/2022 2551 RxNorm TY [place], [place] - S [employer] 3 11:13:30 10332 atorvasta tin calcium medicatio n Not available Not available Not available 01/24/20252017 54184 RxNorm Not Available [facility] - External Data Service - prod 5 [...] Updated DateTime 5 167.64 cm 41.3 kg/m2 588548. 65 g 97.95 [degF] 94 /min 96 % 128/78 mm[Hg] BASIA Guerra [place] [facility] [place] [employer] 5 16:31:45 Social History Question Answer Notes LastModified by Organizat ion Details LastModified Time Tobacco Smoking Status Never Smoker Not Available [facility] 05/04/2022 13:52:20 Do You Have An Advance Directive? No MIGRATION.74802 88440 Information not available 05/04/2022 Are You Blind Or Do You Have Difficulty Seeing? Yes MIGRATION.42076 90736 Information not available 05/04/2022 What Is Your Level Of Caffeine Consumption? Moderate 1 Cup Coffee Daily MIGRATION.66557 35778 Information not available 05/04/2022 How Much Tobacco Do You Chew? None MIGRATION.33262 01928 Information not available 05/04/2022 In The 14 Days Before Symptom Onset, Have You Had Close Contact With A Laboratory-confi rmed COVID-19 While That Case Was Ill? No MIGRATION.64018 92866 Information not available 05/04/2022 In The 14 Days Before Symptom Onset, Have You Had Close Contact With A Person Who Is Under Investigation For COVID-19 While That Person Was Ill? No MIGRATION.56661 25674 Information not available 05/04/2022 Are You Deaf Or Do You Have Serious Difficulty Hearing? No MIGRATION.99947 85176 Information not available 05/04/2022 What Type Of Diet Are You Following? SPECIFIC Reflux Diet MIGRATION.06609 71231 Information not available 05/04/2022 Which Illicit Or Recreational Drugs Have You Used? None MIGRATION.52400 60586 Information not available 05/04/2022 Have There Been Any Changes To Your Family Or Social Situation? No MIGRATION.96516 39813 Information not available 05/04/2022 What Is The Fluoride Status Of Your Home? Unknown [email or web address] Information not available 05/11/2022 Are There Any Guns Present In Your Home? No MIGRATION.99302 54769 Information not available 05/04/2022 Do You Use Insect Repellent Routinely? No MIGRATION.11493 05650 Information not available 05/04/2022 Where Do You Live? [place]House MIGRATION.10171 91021 Information not available 05/04/2022 Guns Present In The Home? No [email or web address] Information not available 09/20/2023 Are You Able To Care For Yourself? Yes [email or web address] Information not available 09/20/2023 Are You Blind Or Do Yo Have Difficulty Seeing? No [email or web address] Information not available 09/20/2023 Are You Deaf Or Do You Have Serious Difficulty Hearing? No [email or web address] Information not available 09/20/2023 Live Alone Of With Others? Alone [email or web address] Information not available 09/20/2023 Do You Have A Medical Power Of Sales Agent Fire Insurance? No MIGRATION.72134 75675 Information not available 05/04/2022 What Was The Date Of Your Most Recent Tobacco Screening? 09/20/2023 [email or web address] Information not available 09/20/2023 Do You Have Any Pets? No MIGRATION.41893 33882 Information not available 05/04/2022 Do You Use Your Seat Belt Or Car Seat Routinely? Yes MIGRATION.87833 78887 Information not available 05/04/2022 Do You Have Smoke And Carbon Monoxide Detectors In Your Home? Yes MIGRATION.49222 48474 Information not available 05/04/2022 Are You Passively Exposed To Smoke? No MIGRATION.23074 83741 Information not available 05/04/2022 Are There Any Smokers In Your House? No MIGRATION.67053 72364 Information not available 05/04/2022 How Much Tobacco Do You Smoke? No MIGRATION.25436 95217 Information not available 05/04/2022 Do You Use Sunscreen Routinely? No MIGRATION.58818 22806 Information not available 05/04/2022 Has Tobacco Cessation Counseling Been Provided? No MIGRATION.94291 80320 Information not available 05/04/2022 Have You Recently Traveled Abroad? No MIGRATION.67699 07871 Information not available 05/04/2022 Do You Have Difficulty Walking Or Climbing Stairs? Yes Uses A Cane [email or web address] Information not available 05/11/2022 Do You Have Any Dietary Restrictions? No MIGRATION.92551 19205 Information not available 05/04/2022 Sex: Unknown Functional Status Question Answer Note LastModified by [employer] ion Details LastModified Time Do you use any illicit or recreational drugs? No MIGRATION.060238 9843 Information not available 05/04/2022 Do you or have you ever used any other forms of tobacco or nicotine? No MIGRATION.916818 1032 Information not available 05/04/2022 What is your level of alcohol consumption? None MIGRATION.687889 8937 Information not available 05/04/2022 Do you or have you ever used smokeless tobacco? Never used smokeless tobacco MIGRATION.925611 7086 Information not available 05/04/2022 Do you have transportation difficulties? No MIGRATION.350315 3467 Information not available 05/04/2022 Are you able to walk independently without assistance or assistive devices? YESASSIST MIGRATION.911940 2919 Information not available 05/04/2022 Do you have difficulty doing errands alone? No MIGRATION.925957 6773 Information not available 05/04/2022 Are you able to care for yourself independently? Yes MIGRATION.398110 0154 Information not available 05/04/2022 What is your occupation? retired MIGRATION.287809 5243 Information not available 05/04/2022 Do you have difficulty dressing, bathing, grooming, or toileting? No MIGRATION.726636 0626 Information not available 05/04/2022 Do you or have you ever used e-cigarettes or vape? Never used electronic cigarettes MIGRATION.326513 7877 Information not available 05/04/2022 What is your exercise level? None MIGRATION.503520 5736 Information not available 05/04/2022 Mental Status Question Answer Note LastModified by Organizat ion Details LastModified Time Do you have difficulty concentrating, remembering or making decisions? No MIGRATION.228745017 6 Information not available 05/04/2022 Family History Relationship Description Onset Age of this Age Resolved Age Notes LastModified by Organization Details LastModified Time Mother Internal capsule hemorrhage 85 MIGRATION.499 2070355 Not available 05/04/2022 13:52:34 Mother Family history of stroke 85 MIGRATION.971 2336166 Not available 05/04/2022 13:52:34 Mother Carcinoma in situ of breast MIGRATION.951 4640644 Not available 05/04/2022 13:52:34 Father Myocardial infarction 83 MIGRATION.692 9028835 Not available 05/04/2022 13:52:34 Father Diabetes mellitus MIGRATION.075 7751847 Not available 05/04/2022 13:52:34 Father Arthritis MIGRATION.158 6287138 Not available 05/04/2022 13:52:34 Notes:Mother 85 from in ternal hemorrhage from Coumadin Father 83 from [place] One older sister living and in good [...] HAVE YOU BEEN HOSPITALIZED OR SEEN IN [facility] IN THE PAST YEAR ? N [...] (COVID-19) vaccine, UNSPECIFIED 3 completed NIRMALA Martin, [employer] 08/04/2022 14:01:26 influenza, unspecified formulation 3 completed Roxanne Kelly CMA null, [employer] 12/28/2022 12:44:44 Respiratory syncytial virus (RSV) MAB, unspecified 3 completed NIRMALA Martin, [employer] 12/28/2022 12:45:47 COVID-19, mRNA, LNP-S, PF, 100 mcg/0.5mL dose or 50 mcg/0.25mL dose 3 completed Roxanne Kelly CMA [employer], [employer] 12/28/2022 12:46:38 pneumococcal polysaccharide PPV23 4 completed BASIA Marroquin, [place] [facility] 09/20/2023 17:16:39 Influenza, split virus, quadrivalent, preservative 1 completed Not Available [facility] 05/04/2022 13:54:56 COVID-19, mRNA, LNP-S, PF, 100 mcg/0.5mL dose or 50 mcg/0.25mL dose 1 completed Not Available [facility] 05/04/2022 13:54:56 SARS-COV-2 (COVID-19) vaccine, UNSPECIFIED 1 completed Not Available [facility] 05/04/2022 13:54:56 SARS-COV-2 (COVID-19) vaccine, UNSPECIFIED 1 completed Not Available [facility] 05/04/2022 13:54:56 Influenza, high-dose, quadrivalent, PF 2 completed Not Available [facility] 05/04/2022 13:54:57 Td (adult), 5 Lf tetanus toxoid, preservative free, adsorbed 0 completed Not Available [facility] 05/04/2022 13:54:57 Pneumococcal conjugate PCV 13 0 completed Not Available [facility] 05/04/2022 13:54:57 Past Encounters Encounter ID Performer Location Encounter Start Date Encounter Closed Date Diagnosis/Indication Diagnosis SNOMED-CT Code Diagnosis ICD10 Code Diagnosis IMO Codes Diagnosis Note [id number] Vielka De Los Santos MD [facility] General Surgery [address] [place] [address] 11/20/2024 14:58:29 11/20/2024 15:49:33 Gastroesophageal reflux disease without esophagitis 737774875 K21.[id number] [facility] [place] [address] [place] [address] 11/21/2024 16:20:33 11/27/2024 13:44:19 Diabetes mellitus 18819983 E11.9 continue PCP recommenda tionscurre ntly on glimepirid econtinue supportive shoe gearCheck feet daily for wounds infectionT o follow-up in 3 months Dystrophia unguium 17643 009 L60.3 1009 Nails were debrided without incidentfo llow-up for routine nail care Health Concerns Section Related Observation LastModified by Organization Detai ls LastModified Time None Recorded Concern Status LastModified by Organization Details LastModified Time None Recorded Payers Encounter Date Sequence Insurance Name Policy Number Policy Pryor Covered Member ID Pryor Member ID Guarantor Name 11/21/2024 1 [facility] (MEDICARE REPLACEMENT/A DVANTAGE - HMO) [id number] Kulwinder Fletcher [id number] Kulwinder Fletcher Notes Date Note Type Note Provider Name and Address Organization Details Recorded Time 11/21/2024 text/html . Patient is a 79-year-old male diabetic who returns for diabetic foot care. Patient overall is doing well he is weight-bearing without assistance. Patient denies any open wounds or injury. Patient states he would like his nails cut. Seth Neal DPM [address] [facility] [address], [place], [address], [facility] 11/25/2024 09:07:07
[2025-01-24 15:57] LABS: Alanine Aminotransferase 15 U/L (6-50); Albumin Level 4.3 g/dL (3.5-5.1); Alkaline Phosphatase 45 U/L (38-126); Anion Gap 8 mmol/L (4-12); Aspartate Amino Transferase 29 U/L (17-59); Bilirubin,Total 0.3 mg/dL (0.2-1.3); Blood Urea Nitrogen 19 mg/dL (9-20); Calcium 10.3 mg/dL (8.4-10.2); Carbon Dioxide 26 mmol/L (22-30); Chloride 106 mmol/L (98-107); Cholesterol 140 mg/dL (0-200); Estimated Glomerular Filt Rate > 60; Glucose 130 mg/dL (65-110); HDL Direct 46 mg/dL; Potassium 4.8 mmol/L (3.4-5.0); Sodium 140 mmol/L (137-145); Total Protein 7.8 g/dL (6.3-8.2); Triglycerides 113 mg/dL (<150)
[2025-01-24 16:09] LABS: Hemoglobin A1C 6.3 % (<5.7)
[2025-01-24 16:10] LABS: MALB Creatinine Ratio 7.6 mg/g (0-30)
== END 2025-01-24 15:03 | disposition home or self-care (01) ==
LOC: ANHLAB 15:04
PROVIDERS: PCP Internal Medicine; Visit Provider Internal Medicine
DX: E78.00 Pure hypercholesterolemia, unspecified (principal); E11.9 Type 2 diabetes mellitus without complications
CPT/HCPCS: 36415; 80053; 80061; 82043; 83036